=== PATIENT | male | born 1935 | race Two or more races ===

== ENCOUNTER 2022-12-14 13:42 | Inpatient (IN) | payer OTHER ==
[~2022-12-14] VITALS: Ht 165.1 cm; Wt 73.5 kg
[2022-12-14] MEDS ORDERED: ACCU-CHEK COMFORT CURVE STRIP VI ONE (14:15)
[2022-12-14 14:30] VITALS: PULSE 71; RESP 18; O2SAT 99
[2022-12-14 14:41] LABS: Basophils # (auto) 0 10 ^3/uL (0-0.2); Eosinophils # (auto) 0.1 10 ^3/uL (0-0.8); Eosinophils % (auto) 1.6 % (0.0-7.0); Hemoglobin 8.6 g/dL (13.5-17.5); Lymphocytes # (auto) 0.6 10 ^3/uL (0.4-5.4); Lymphocytes % (auto) 16.1 % (10.0-50.0); Mean Corpuscular Hemoglobin 28.6 pg (28.0-32.0); Mean Corpuscular Hgb Conc. 31.9 g/dL (32.0-36.0); Mean Corpuscular Volume 89.7 fL (80.0-100.0); Monocytes # (auto) 0.3 10 ^3/uL (0-1.3); Monocytes % (auto) 7.5 % (0.0-12.0); Neutrophils # (auto) 2.6 10 ^3/uL (1.6-8.6); Neutrophils % (auto) 73.8 % (37.0-80.0); Nucleated Red Blood Cells % 0.1 %; Red Blood Cells 3.01 10^6/uL (4.5-5.90); Red Cell Distribution Width 18.9 % (11.8-14.3); White Blood Cell 3.5 10^3/uL (4.4-10.8)
[2022-12-14 15:04] LABS: Calcium 7.5 mg/dL (8.5-10.1); Potassium 3.7 mmol/L (3.5-5.1)
[2022-12-14 15:10] LABS: Albumin 2.1 g/dL (3.4-5.0); Bilirubin, Total 0.8 mg/dL (0.2-1.0); Total Protein 4.5 g/dL (6.4-8.2)
[2022-12-14 15:27] LABS: Urine Bacteria FEW /hpf (None Seen); Urine Blood Negative /uL (Negative); Urine Clarity Clear (Clear); Urine Color Yellow (Yellow); Urine Hyaline Cast FEW /lpf (0 - 2); Urine Protein, UAD TRACE (Negative); Urine Specific Gravity 1.012 (1.001-1.035); Urine Urobilinogen Normal (Negative); Urine WBC 3 /hpf (0 - 3)
[2022-12-14 15:43] LABS: Erythrocyte Sedimentation Rate 21 mm/hr (0-20)
[2022-12-14] MEDS ORDERED: PIPERACILLIN-TAZOB 3.375GM 100 ML IV ONE (15:45)
[2022-12-14] MEDS ORDERED: SODIUM CHLORIDE 0.9% 1,000 ML IV ONE ×2 (16:00→19:00)
[2022-12-14] MEDS ORDERED: MORPHINE SULFATE INJ 2 MG/ml SYRG IV PRN (16:30)
[2022-12-14] MEDS ORDERED: NITROGLYCERIN 0.4 MG SL TAB SL PRN (16:30)
[2022-12-14] MEDS ORDERED: cefTRIAXone 1GM/50ML D5W 50 ML IV ONE (16:30)
[2022-12-14] MEDS ORDERED: METO25TA5 PO (16:31)
[2022-12-14] MEDS ORDERED: MET25T PO (16:31)
[2022-12-14] MEDS ORDERED: TETR1CAP PO ×2 (16:31→17:18)
[2022-12-14] MEDS ORDERED: PANT40T PO (16:31)
[2022-12-14] MEDS ORDERED: APIX2.5T PO (16:31)
[2022-12-14] MEDS ORDERED: VENL1TAB97 PO (16:31)
[2022-12-14] MEDS ORDERED: MEMA1TAB5 PO (16:31)
[2022-12-14] MEDS ORDERED: GABA-1250 PO (16:31)
[2022-12-14] MEDS ORDERED: TRAZ-227 PO (16:31)
[2022-12-14] MEDS ORDERED: DONE1TAB88 PO (16:31)
[2022-12-14] MEDS ORDERED: FURO40TA4 PO (16:31)
[2022-12-14] MEDS ORDERED: MEGE40TA4 PO (16:31)
[2022-12-14] MEDS ORDERED: CETI-120 PO (16:31)
[2022-12-14] MEDS ORDERED: DOXY-267 PO (16:31)
[2022-12-14] MEDS ORDERED: CIPR500T4 PO (16:31)
[2022-12-14] MEDS ORDERED: CLIN-203 PO (16:31)
[2022-12-14] MEDS ORDERED: MIRT1TAB38 PO (16:32)
[2022-12-14] MEDS ORDERED: DIGO0.12 PO (16:32)
[2022-12-14] MEDS ORDERED: DOXY100C4 PO (16:32)
[2022-12-14] MEDS: HYDROcodone-ACET 5/325MG TAB PO PRN (16:48)
[2022-12-14] MEDS: SODIUM CHLORIDE 0.9% 1,000 ML IV SCH (16:59)
[2022-12-14] MEDS ORDERED: PANT40TA2 PO (17:18)
[2022-12-14] MEDS ORDERED: MET250PM PO (17:18)
[2022-12-14] MEDS ORDERED: [UNRECOGNIZED DRUG - CODE] PO (17:18)
[2022-12-14] MEDS ORDERED: PPN PER PHARMACY 0 ML IV SCH (17:30)
[2022-12-14] MEDS ORDERED: TETRACYCLINE HCL 250 MG PO SCH (18:00)
[2022-12-14] MEDS: BISMUTH SUBSALICYLATE 262 MG CHEW PO SCH ×2 (18:15→22:00)
[2022-12-14] MEDS: metroNIDAZOLE 500 MG TAB PO SCH (18:15)
[2022-12-14] MEDS ORDERED: SODIUM CHLORIDE 0.9% 500 ML IV ONE (19:00)
[2022-12-14] MEDS ORDERED: AMINO ACID INFUSION IN D10W 1,000 ML IV NR (20:00)
[2022-12-14] MEDS ORDERED: DEXTROSE (50%) 50ML SYRG IV SCH (20:00)
[2022-12-14 20:20] VITALS: PULSE 76; RESP 18; O2SAT 95
[2022-12-14] MEDS: ASCORBIC ACID 500 MG TAB PO SCH (21:59)
[2022-12-14] MEDS: MEMANTINE HCL 5 MG TAB PO SCH (22:00)
[2022-12-14] MEDS: DONEPEZIL HYDROCHLORIDE 5 MG TAB PO SCH (22:00)
[2022-12-14] MEDS: GABAPENTIN 300 MG CAP PO SCH (22:00)
[2022-12-14] MEDS: VENLAFAXINE HCL 37.5MG TABLET PO SCH (22:00)
[2022-12-14] MEDS: PANTOPRAZOLE 40 MG TAB PO SCH (22:01)
[2022-12-14] MEDS: APIXABAN 2.5 MG TAB PO SCH (22:01)
[2022-12-14] MEDS: TETRACYCLINE HCL 500 MG PO SCH (22:03)
[2022-12-14] MEDS: MEGESTROL ACETATE 20 MG TAB PO SCH (22:03)
[2022-12-15] MEDS: ACCU-CHEK COMFORT CURVE STRIP VI SCH ×4 (00:29→19:43)
[2022-12-15] MEDS: metroNIDAZOLE 500 MG TAB PO SCH ×5 (00:31→23:41)
[2022-12-15] MEDS: HYDROcodone-ACET 5/325MG TAB PO PRN (00:31)
[2022-12-15] MEDS: InsuLIN REG 1unit/0.01ml Soln (100units/ml) SC SCH ×4 (06:30→18:00)
[2022-12-15] MEDS: BISMUTH SUBSALICYLATE 262 MG CHEW PO SCH ×2 (06:34→13:40)
[2022-12-15] MEDS ORDERED: PANTOPRAZOLE 40 MG TAB PO SCH (07:00)
[2022-12-15 07:08] LABS: Basophils # (auto) 0 10 ^3/uL (0-0.2); Basophils % (auto) 0.4 % (0.0-2.0); Eosinophils # (auto) 0.1 10 ^3/uL (0-0.8); Eosinophils % (auto) 1.3 % (0.0-7.0); Hematocrit 31.2 % (41.0-53.0); Hemoglobin 10.1 g/dL (13.5-17.5); Lymphocytes # (auto) 0.7 10 ^3/uL (0.4-5.4); Lymphocytes % (auto) 15.2 % (10.0-50.0); Mean Corpuscular Hgb Conc. 32.4 g/dL (32.0-36.0); Mean Corpuscular Volume 89.4 fL (80.0-100.0); Monocytes # (auto) 0.3 10 ^3/uL (0-1.3); Monocytes % (auto) 5.8 % (0.0-12.0); Neutrophils # (auto) 3.4 10 ^3/uL (1.6-8.6); Neutrophils % (auto) 77.3 % (37.0-80.0); Nucleated Red Blood Cells % 0.2 %; Red Blood Cells 3.49 10^6/uL (4.5-5.90); Red Cell Distribution Width 19.1 % (11.8-14.3); White Blood Cell 4.3 10^3/uL (4.4-10.8)
[2022-12-15 07:28] LABS: Potassium 3.2 mmol/L (3.5-5.1)
[2022-12-15 07:34] LABS: Albumin 2.4 g/dL (3.4-5.0); BUN/Creatinine Ratio 24.5 (10.0-20.0); Bilirubin, Total 0.8 mg/dL (0.2-1.0); Calcium 7.5 mg/dL (8.5-10.1); Magnesium 1.7 mg/dL (1.6-2.6); Phosphorus 1.4 mg/dL (2.5-4.90); Total Protein 5.7 g/dL (6.4-8.2)
[2022-12-15 07:45] VITALS: PULSE 106; RESP 16; O2SAT 94
[2022-12-15] MEDS: TETRACYCLINE HCL 500 MG PO SCH ×2 (09:14→13:43)
[2022-12-15] MEDS ORDERED: ENOXAPARIN SOD 40 MG/0.4 ML SYRINGE SC SCH (10:00)
[2022-12-15] MEDS ORDERED: FUROSEMIDE 40 MG TAB PO SCH (10:00)
[2022-12-15] MEDS ORDERED: POTASSIUM PHOSPHATE 44 MEQ in D5W 5% 250 ML IV ONE (11:00)
[2022-12-15] MEDS: APIXABAN 2.5 MG TAB PO SCH ×2 (11:17→22:28)
[2022-12-15] MEDS: DIGOXIN 0.125 MG TAB PO SCH (11:17)
[2022-12-15] MEDS: GABAPENTIN 300 MG CAP PO SCH ×2 (11:18→22:28)
[2022-12-15] MEDS: PANTOPRAZOLE 40 MG TAB PO SCH ×2 (11:18→22:28)
[2022-12-15] MEDS: ASCORBIC ACID 500 MG TAB PO SCH ×2 (11:18→22:27)
[2022-12-15] MEDS: MEMANTINE HCL 5 MG TAB PO SCH ×2 (11:19→22:31)
[2022-12-15] MEDS: MULTIPLE VITAMIN TAB PO SCH (11:19)
[2022-12-15] MEDS: ZINC SULFATE 220mg CAP or TAB PO SCH (11:21)
[2022-12-15] MEDS: cefTRIAXone 1GM/50ML D5W 50 ML IV SCH (11:22)
[2022-12-15] MEDS: SODIUM CHLORIDE 0.9% 1,000 ML IV SCH ×2 (11:36→22:37)
[2022-12-15] MEDS: VENLAFAXINE HCL 37.5MG TABLET PO SCH ×2 (11:47→22:27)
[2022-12-15] MEDS: MEGESTROL ACETATE 20 MG TAB PO SCH ×2 (11:47→22:29)
[2022-12-15] MEDS ORDERED: DEXTROSE 10% 250 ML IV ONE (12:12)
[2022-12-15 19:03] VITALS: BP 132/78; PULSE 101; RESP 17; TEMP 98.1; O2SAT 94
[2022-12-15 19:05] VITALS: RESP 17; O2SAT 94
[2022-12-15 20:00] VITALS: PULSE 85; RESP 18; O2SAT 100
[2022-12-15] MEDS ORDERED: POTASSIUM PHOSPHATE IV NR ×9 (20:00)
[2022-12-15] MEDS ORDERED: [UNRECOGNIZED DRUG - OTHER] IV NR ×9 (20:00)
[2022-12-15] MEDS ORDERED: FAT EMULSION IV NR ×9 (20:00)
[2022-12-15] MEDS ORDERED: POTASSIUM ACETATE IV NR ×9 (20:00)
[2022-12-15] MEDS: DONEPEZIL HYDROCHLORIDE 5 MG TAB PO SCH (22:30)
[2022-12-15] MEDS: DAKINS QUARTER STR 0.125% (NaHypochlorite) 473 ML TOPICAL SOL TOP SCH (22:33)
[2022-12-16] VITALS (8 sets, daily range): BP systolic 108–154; BP diastolic 60–82; PULSE 88–119; RESP 16–20; TEMP 97.6–98.5; O2SAT 91–97
[2022-12-16] MEDS: ACCU-CHEK COMFORT CURVE STRIP VI SCH ×4 (00:56→18:08)
[2022-12-16] MEDS: metroNIDAZOLE 500 MG TAB PO SCH ×3 (05:11→18:18)
[2022-12-16] MEDS: HYDROcodone-ACET 5/325MG TAB PO PRN ×2 (05:12→14:53)
[2022-12-16] MEDS: InsuLIN REG 1unit/0.01ml Soln (100units/ml) SC SCH ×4 (05:17→18:00)
[2022-12-16 05:53] LABS: Basophils # (auto) 0 10 ^3/uL (0-0.2); Basophils % (auto) 0.4 % (0.0-2.0); Eosinophils # (auto) 0.1 10 ^3/uL (0-0.8); Eosinophils % (auto) 1.5 % (0.0-7.0); Hematocrit 28.6 % (41.0-53.0); Hemoglobin 9.3 g/dL (13.5-17.5); Lymphocytes # (auto) 0.5 10 ^3/uL (0.4-5.4); Lymphocytes % (auto) 13.8 % (10.0-50.0); Mean Corpuscular Hemoglobin 29.9 pg (28.0-32.0); Mean Corpuscular Hgb Conc. 32.4 g/dL (32.0-36.0); Mean Corpuscular Volume 92.1 fL (80.0-100.0); Monocytes # (auto) 0.3 10 ^3/uL (0-1.3); Monocytes % (auto) 7.3 % (0.0-12.0); Red Blood Cells 3.11 10^6/uL (4.5-5.90); Red Cell Distribution Width 19.4 % (11.8-14.3); White Blood Cell 3.9 10^3/uL (4.4-10.8)
[2022-12-16 06:17] LABS: Potassium 3.8 mmol/L (3.5-5.1)
[2022-12-16 06:29] LABS: BUN/Creatinine Ratio 23.9 (10.0-20.0); Bilirubin, Total 0.6 mg/dL (0.2-1.0); Calcium 7.7 mg/dL (8.5-10.1); Magnesium 2.2 mg/dL (1.6-2.6); Phosphorus 2.7 mg/dL (2.5-4.90)
[2022-12-16] MEDS: APIXABAN 2.5 MG TAB PO SCH ×2 (09:52→21:37)
[2022-12-16] MEDS: VENLAFAXINE HCL 37.5MG TABLET PO SCH ×2 (09:52→21:38)
[2022-12-16] MEDS: ASCORBIC ACID 500 MG TAB PO SCH ×2 (09:52→21:37)
[2022-12-16] MEDS: DIGOXIN 0.125 MG TAB PO SCH (09:52)
[2022-12-16] MEDS: MEMANTINE HCL 5 MG TAB PO SCH ×2 (09:52→21:40)
[2022-12-16] MEDS: MULTIPLE VITAMIN TAB PO SCH (09:52)
[2022-12-16] MEDS: GABAPENTIN 300 MG CAP PO SCH ×2 (09:52→21:41)
[2022-12-16] MEDS: PANTOPRAZOLE 40 MG TAB PO SCH ×2 (09:52→21:39)
[2022-12-16] MEDS: MEGESTROL ACETATE 20 MG TAB PO SCH ×2 (09:53→21:41)
[2022-12-16] MEDS: ZINC SULFATE 220mg CAP or TAB PO SCH (09:53)
[2022-12-16] MEDS: DAKINS QUARTER STR 0.125% (NaHypochlorite) 473 ML TOPICAL SOL TOP SCH ×2 (09:53→22:00)
[2022-12-16] MEDS: cefTRIAXone 1GM/50ML D5W 50 ML IV SCH (09:53)
[2022-12-16] MEDS: TETRACYCLINE HCL 500 MG PO SCH ×2 (19:22→21:45)
[2022-12-16] MEDS: SODIUM CHLORIDE 0.9% 1,000 ML IV SCH (20:00)
[2022-12-16] MEDS: SODIUM ACETATE IV NR ×9 (21:29)
[2022-12-16] MEDS: POTASSIUM ACETATE IV NR ×9 (21:29)
[2022-12-16] MEDS: [UNRECOGNIZED DRUG - OTHER] IV NR ×9 (21:29)
[2022-12-16] MEDS: FAT EMULSION IV NR ×9 (21:29)
[2022-12-16] MEDS: DONEPEZIL HYDROCHLORIDE 5 MG TAB PO SCH (21:38)
[2022-12-16] MEDS: METOPROLOL TARTRATE 25 MG TAB PO SCH (21:44)
[2022-12-16] MEDS ORDERED: METOPROLOL TARTRATE 25 MG TAB PO SCH (22:00)
[2022-12-17] MEDS: metroNIDAZOLE 500 MG TAB PO SCH ×4 (00:43→18:09)
[2022-12-17] MEDS: ACCU-CHEK COMFORT CURVE STRIP VI SCH ×4 (00:46→18:09)
[2022-12-17 05:00] VITALS: BP 108/58; PULSE 70; RESP 15; TEMP 97.6; O2SAT 72
[2022-12-17] MEDS ORDERED: EZ-GAS II GRANULES (RADIOLOGY USE) PO ONE (05:32)
[2022-12-17 05:59] LABS: Potassium 4.2 mmol/L (3.5-5.1)
[2022-12-17] MEDS: InsuLIN REG 1unit/0.01ml Soln (100units/ml) SC SCH ×4 (06:00→17:25)
[2022-12-17 06:05] LABS: Albumin 2.1 g/dL (3.4-5.0); BUN/Creatinine Ratio 28.9 (10.0-20.0); Bilirubin, Total 0.6 mg/dL (0.2-1.0); Magnesium 2.4 mg/dL (1.6-2.6); Phosphorus 1.9 mg/dL (2.5-4.90); Total Protein 5.3 g/dL (6.4-8.2)
[2022-12-17] MEDS: TETRACYCLINE HCL 500 MG PO SCH ×4 (06:05→21:18)
[2022-12-17 08:00] VITALS: PULSE 69
[2022-12-17 09:00] VITALS: BP 162/82; PULSE 94; RESP 20; TEMP 98.6
[2022-12-17] MEDS ORDERED: SODIUM PHOSP 40 MEQ in D5W 5% 250 ML IV ONE (09:45)
[2022-12-17] MEDS: VENLAFAXINE HCL 37.5MG TABLET PO SCH ×2 (10:02→21:17)
[2022-12-17] MEDS: ZINC SULFATE 220mg CAP or TAB PO SCH (10:02)
[2022-12-17] MEDS: MULTIPLE VITAMIN TAB PO SCH (10:02)
[2022-12-17] MEDS: cefTRIAXone 1GM/50ML D5W 50 ML IV SCH (10:02)
[2022-12-17] MEDS: GABAPENTIN 300 MG CAP PO SCH ×2 (10:02→21:16)
[2022-12-17] MEDS: MEMANTINE HCL 5 MG TAB PO SCH ×2 (10:03→21:16)
[2022-12-17] MEDS: PANTOPRAZOLE 40 MG TAB PO SCH ×2 (10:03→21:16)
[2022-12-17] MEDS: APIXABAN 2.5 MG TAB PO SCH ×2 (10:03→21:16)
[2022-12-17] MEDS: ASCORBIC ACID 500 MG TAB PO SCH ×2 (10:03→21:15)
[2022-12-17] MEDS: MEGESTROL ACETATE 20 MG TAB PO SCH ×2 (10:07→21:19)
[2022-12-17] MEDS: DAKINS QUARTER STR 0.125% (NaHypochlorite) 473 ML TOPICAL SOL TOP SCH ×2 (10:07→21:19)
[2022-12-17] MEDS: METOPROLOL TARTRATE 25 MG TAB PO SCH ×2 (10:07→21:17)
[2022-12-17] MEDS ORDERED: GLUCAGON EMERG KIT 1mg/1ml IV ONE (12:45)
[2022-12-17 12:51] VITALS: BP 125/72; PULSE 83; RESP 16; TEMP 98.1
[2022-12-17] MEDS: BISMUTH SUBSALICYLATE 262 MG CHEW PO SCH ×2 (18:10→21:18)
[2022-12-17 19:40] VITALS: PULSE 92; PULSE 94; RESP 18; O2SAT 93
[2022-12-17] MEDS: POTASSIUM ACETATE IV NR ×9 (19:59)
[2022-12-17] MEDS: SODIUM ACETATE IV NR ×9 (19:59)
[2022-12-17] MEDS: [UNRECOGNIZED DRUG - OTHER] IV NR ×9 (19:59)
[2022-12-17] MEDS: FAT EMULSION IV NR ×9 (19:59)
[2022-12-17] MEDS: PPN PER PHARMACY IV NR ×9 (21:00)
[2022-12-17] MEDS: DONEPEZIL HYDROCHLORIDE 5 MG TAB PO SCH (21:16)
[2022-12-17] MEDS: SODIUM CHLORIDE 0.9% 1,000 ML IV SCH (21:18)
[2022-12-17 22:00] VITALS: BP 130/67; PULSE 80; RESP 17; TEMP 98.5; O2SAT 91
[2022-12-18] VITALS (7 sets, daily range): BP systolic 113–147; BP diastolic 60–71; PULSE 65–98; RESP 17–20; TEMP 97.4–98.8; O2SAT 74–100
[2022-12-18] MEDS: metroNIDAZOLE 500 MG TAB PO SCH ×4 (00:40→18:09)
[2022-12-18] MEDS: ACCU-CHEK COMFORT CURVE STRIP VI SCH ×4 (00:40→18:10)
[2022-12-18 05:47] LABS: Albumin 2.2 g/dL (3.4-5.0); Magnesium 2.7 mg/dL (1.6-2.6); Potassium 4.6 mmol/L (3.5-5.1)
[2022-12-18 05:52] LABS: BUN/Creatinine Ratio 37.1 (10.0-20.0); Bilirubin, Total 0.5 mg/dL (0.2-1.0); Phosphorus 2.7 mg/dL (2.5-4.90); Total Protein 5.6 g/dL (6.4-8.2)
[2022-12-18] MEDS: InsuLIN REG 1unit/0.01ml Soln (100units/ml) SC SCH ×4 (06:00→18:00)
[2022-12-18] MEDS: BISMUTH SUBSALICYLATE 262 MG CHEW PO SCH ×4 (06:03→22:18)
[2022-12-18] MEDS: TETRACYCLINE HCL 500 MG PO SCH ×4 (06:04→22:44)
[2022-12-18] MEDS: MEMANTINE HCL 5 MG TAB PO SCH ×2 (09:26→23:17)
[2022-12-18] MEDS: PANTOPRAZOLE 40 MG TAB PO SCH ×2 (09:26→22:17)
[2022-12-18] MEDS: APIXABAN 2.5 MG TAB PO SCH ×2 (09:26→22:17)
[2022-12-18] MEDS: VENLAFAXINE HCL 37.5MG TABLET PO SCH ×2 (09:26→22:16)
[2022-12-18] MEDS: MULTIPLE VITAMIN TAB PO SCH (09:26)
[2022-12-18] MEDS: GABAPENTIN 300 MG CAP PO SCH ×2 (09:26→22:16)
[2022-12-18] MEDS: ZINC SULFATE 220mg CAP or TAB PO SCH (09:26)
[2022-12-18] MEDS: MEGESTROL ACETATE 20 MG TAB PO SCH ×2 (09:27→22:43)
[2022-12-18] MEDS: ASCORBIC ACID 500 MG TAB PO SCH ×2 (09:27→22:16)
[2022-12-18] MEDS: DAKINS QUARTER STR 0.125% (NaHypochlorite) 473 ML TOPICAL SOL TOP SCH ×2 (09:28→22:44)
[2022-12-18] MEDS: METOPROLOL TARTRATE 25 MG TAB PO SCH ×2 (09:28→22:16)
[2022-12-18] MEDS ORDERED: VANCOMYCIN PER PHARMACY 0 MG IV SCH (09:45)
[2022-12-18] MEDS ORDERED: VANCOMYCIN 750mg/250ml 250 ML IV ONE (10:00)
[2022-12-18] MEDS: NYSTATIN (MOUTH-THROAT) 500,000 UNITS/5 ML SUSP MT SCH ×2 (11:34→18:09)
[2022-12-18] MEDS ORDERED: SODIUM PHOSPHATES IV NR ×8 (20:00)
[2022-12-18] MEDS: SODIUM CHLORIDE 0.9% 1,000 ML IV SCH (20:00)
[2022-12-18] MEDS ORDERED: [UNRECOGNIZED DRUG - OTHER] IV NR ×8 (20:00)
[2022-12-18] MEDS ORDERED: POTASSIUM PHOSPHATE IV NR ×8 (20:00)
[2022-12-18] MEDS ORDERED: FAT EMULSION IV NR ×8 (20:00)
[2022-12-18] MEDS: PPN PER PHARMACY IV NR ×9 (20:28)
[2022-12-18] MEDS ORDERED: LORazepam 2MG/ML-1ML VIAL IV PRN (22:00)
[2022-12-18 22:59] LABS: Folate (Folic Acid) 6.67 ng/mL (5.38-24)
[2022-12-18] MEDS: DONEPEZIL HYDROCHLORIDE 5 MG TAB PO SCH (23:17)
[2022-12-19] VITALS (7 sets, daily range): BP systolic 107–150; BP diastolic 42–79; PULSE 61–106; RESP 16–20; TEMP 97.6–98.5; O2SAT 91–100
[2022-12-19] MEDS: InsuLIN REG 1unit/0.01ml Soln (100units/ml) SC SCH ×5 (00:06→23:28)
[2022-12-19] MEDS: ACCU-CHEK COMFORT CURVE STRIP VI SCH ×5 (00:07→23:27)
[2022-12-19] MEDS: metroNIDAZOLE 500 MG TAB PO SCH ×4 (00:07→19:18)
[2022-12-19] MEDS: VANCOMYCIN 750mg/250ml 250 ML IV SCH (05:29)
[2022-12-19] MEDS: BISMUTH SUBSALICYLATE 262 MG CHEW PO SCH ×4 (05:45→23:12)
[2022-12-19] MEDS: NYSTATIN (MOUTH-THROAT) 500,000 UNITS/5 ML SUSP MT SCH ×3 (05:46→19:18)
[2022-12-19] MEDS: TETRACYCLINE HCL 500 MG PO SCH ×4 (05:46→23:12)
[2022-12-19 06:39] LABS: BUN/Creatinine Ratio 43.9 (10.0-20.0); Calcium 7.8 mg/dL (8.5-10.1); Magnesium 2.2 mg/dL (1.6-2.6); Potassium 4.3 mmol/L (3.5-5.1)
[2022-12-19 06:42] LABS: Bilirubin, Total 0.5 mg/dL (0.2-1.0); Phosphorus 2.4 mg/dL (2.5-4.90); Total Protein 5.5 g/dL (6.4-8.2)
[2022-12-19 07:34] LABS: Basophils # (auto) 0 10 ^3/uL (0-0.2); Basophils % (auto) 0.3 % (0.0-2.0); Eosinophils # (auto) 0 10 ^3/uL (0-0.8); Eosinophils % (auto) 1.1 % (0.0-7.0); Hematocrit 32.2 % (41.0-53.0); Hemoglobin 10.2 g/dL (13.5-17.5); Lymphocytes # (auto) 0.6 10 ^3/uL (0.4-5.4); Mean Corpuscular Hemoglobin 29.1 pg (28.0-32.0); Mean Corpuscular Hgb Conc. 31.5 g/dL (32.0-36.0); Mean Corpuscular Volume 92.2 fL (80.0-100.0); Monocytes # (auto) 0.4 10 ^3/uL (0-1.3); Monocytes % (auto) 8.7 % (0.0-12.0); Neutrophils # (auto) 3.2 10 ^3/uL (1.6-8.6); Neutrophils % (auto) 74.9 % (37.0-80.0); Nucleated Red Blood Cells % 0.2 %; Red Blood Cells 3.49 10^6/uL (4.5-5.90); Red Cell Distribution Width 19.9 % (11.8-14.3); White Blood Cell 4.3 10^3/uL (4.4-10.8)
[2022-12-19] MEDS: GABAPENTIN 300 MG CAP PO SCH ×2 (10:19→23:02)
[2022-12-19] MEDS: APIXABAN 2.5 MG TAB PO SCH ×2 (10:20→23:02)
[2022-12-19] MEDS: METOPROLOL TARTRATE 25 MG TAB PO SCH ×2 (10:20→23:16)
[2022-12-19] MEDS: VENLAFAXINE HCL 37.5MG TABLET PO SCH ×2 (10:21→23:14)
[2022-12-19] MEDS: ASCORBIC ACID 500 MG TAB PO SCH ×2 (10:21→23:02)
[2022-12-19] MEDS: MULTIPLE VITAMIN TAB PO SCH (10:21)
[2022-12-19] MEDS: MEMANTINE HCL 5 MG TAB PO SCH ×2 (10:21→22:00)
[2022-12-19] MEDS: ZINC SULFATE 220mg CAP or TAB PO SCH (10:21)
[2022-12-19] MEDS: PANTOPRAZOLE 40 MG TAB PO SCH ×2 (10:21→22:00)
[2022-12-19] MEDS: MEGESTROL ACETATE 20 MG TAB PO SCH ×2 (10:22→23:11)
[2022-12-19] MEDS ORDERED: SODIUM PHOSPHATES 20 MEQ in SODIUM CHL 0.9% 100 ML IV ONE (12:00)
[2022-12-19] MEDS: DAKINS QUARTER STR 0.125% (NaHypochlorite) 473 ML TOPICAL SOL TOP SCH ×2 (15:30→23:24)
[2022-12-19] MEDS ORDERED: PPN PER PHARMACY IV NR ×8 (20:00)
[2022-12-19] MEDS: SODIUM CHLORIDE 0.9% 1,000 ML IV SCH (20:00)
[2022-12-19] MEDS: DONEPEZIL HYDROCHLORIDE 5 MG TAB PO SCH (22:00)
[2022-12-19] MEDS: SUCRALFATE 1 GM/10 ML ORAL SUSP PO SCH (23:13)
[2022-12-20] VITALS (8 sets, daily range): BP systolic 117–154; BP diastolic 62–72; PULSE 85–97; RESP 16–20; TEMP 97.3–98.4; O2SAT 97–100
[2022-12-20] MEDS: metroNIDAZOLE 500 MG TAB PO SCH ×5 (00:12→23:45)
[2022-12-20] MEDS: VANCOMYCIN 750mg/250ml 250 ML IV SCH (00:14)
[2022-12-20] MEDS: HYDROcodone-ACET 5/325MG TAB PO PRN ×2 (04:25→20:32)
[2022-12-20 05:44] LABS: Potassium 4.1 mmol/L (3.5-5.1)
[2022-12-20 05:54] LABS: Albumin 2.2 g/dL (3.4-5.0); BUN/Creatinine Ratio 56.4 (10.0-20.0); Calcium 8.1 mg/dL (8.5-10.1); Magnesium 2.3 mg/dL (1.6-2.6); Phosphorus 3.1 mg/dL (2.5-4.90)
[2022-12-20] MEDS: InsuLIN REG 1unit/0.01ml Soln (100units/ml) SC SCH ×4 (06:00→23:44)
[2022-12-20] MEDS: TETRACYCLINE HCL 500 MG PO SCH ×4 (06:00→21:24)
[2022-12-20] MEDS: BISMUTH SUBSALICYLATE 262 MG CHEW PO SCH ×4 (06:31→21:40)
[2022-12-20] MEDS: SUCRALFATE 1 GM/10 ML ORAL SUSP PO SCH ×4 (06:41→21:26)
[2022-12-20] MEDS: NYSTATIN (MOUTH-THROAT) 500,000 UNITS/5 ML SUSP MT SCH ×5 (06:41→21:26)
[2022-12-20] MEDS: ACCU-CHEK COMFORT CURVE STRIP VI SCH ×4 (06:48→23:43)
[2022-12-20] MEDS: GABAPENTIN 300 MG CAP PO SCH ×2 (09:39→21:39)
[2022-12-20] MEDS: APIXABAN 2.5 MG TAB PO SCH ×2 (09:40→21:39)
[2022-12-20] MEDS: ZINC SULFATE 220mg CAP or TAB PO SCH (09:40)
[2022-12-20] MEDS: PANTOPRAZOLE 40 MG TAB PO SCH ×2 (09:40→21:39)
[2022-12-20] MEDS: VENLAFAXINE HCL 37.5MG TABLET PO SCH ×2 (09:40→21:39)
[2022-12-20] MEDS: ASCORBIC ACID 500 MG TAB PO SCH ×2 (09:40→21:38)
[2022-12-20] MEDS: MULTIPLE VITAMIN TAB PO SCH (09:40)
[2022-12-20] MEDS: METOPROLOL TARTRATE 25 MG TAB PO SCH ×2 (09:41→21:39)
[2022-12-20] MEDS: MEGESTROL ACETATE 20 MG TAB PO SCH ×2 (09:41→21:40)
[2022-12-20] MEDS: MEMANTINE HCL 5 MG TAB PO SCH ×2 (10:00→21:25)
[2022-12-20] MEDS: ACYCLOVIR 400 MG TAB PO SCH ×2 (15:00→21:48)
[2022-12-20] MEDS: DAKINS QUARTER STR 0.125% (NaHypochlorite) 473 ML TOPICAL SOL TOP SCH ×2 (15:03→21:49)
[2022-12-20] MEDS: ACETAMINOPHEN 325 MG TAB PO PRN (18:52)
[2022-12-20] MEDS: SODIUM CHLORIDE 0.9% 1,000 ML IV SCH (20:33)
[2022-12-20] MEDS: DONEPEZIL HYDROCHLORIDE 5 MG TAB PO SCH (21:25)
[2022-12-20] MEDS: MUPIROCIN 2% OINT 15gm or 22gm TOP SCH (21:26)
[2022-12-21] VITALS (7 sets, daily range): BP systolic 107–137; BP diastolic 55–71; PULSE 66–109; RESP 17–22; TEMP 97.4–98.6; O2SAT 96–98
[2022-12-21] MEDS: NYSTATIN (MOUTH-THROAT) 500,000 UNITS/5 ML SUSP MT SCH ×4 (05:42→22:04)
[2022-12-21] MEDS: TETRACYCLINE HCL 500 MG PO SCH ×4 (05:43→22:00)
[2022-12-21] MEDS: metroNIDAZOLE 500 MG TAB PO SCH ×4 (05:45→23:27)
[2022-12-21] MEDS: BISMUTH SUBSALICYLATE 262 MG CHEW PO SCH ×4 (05:45→22:04)
[2022-12-21] MEDS: ACYCLOVIR 400 MG TAB PO SCH ×3 (05:45→22:05)
[2022-12-21] MEDS: InsuLIN REG 1unit/0.01ml Soln (100units/ml) SC SCH ×4 (05:46→23:28)
[2022-12-21] MEDS: ACCU-CHEK COMFORT CURVE STRIP VI SCH ×4 (05:46→23:28)
[2022-12-21] MEDS: SUCRALFATE 1 GM/10 ML ORAL SUSP PO SCH ×4 (06:20→22:04)
[2022-12-21] MEDS: PANTOPRAZOLE 40 MG TAB PO SCH ×2 (09:36→22:05)
[2022-12-21] MEDS: METOPROLOL TARTRATE 25 MG TAB PO SCH ×2 (09:37→22:06)
[2022-12-21] MEDS: MULTIPLE VITAMIN TAB PO SCH (09:37)
[2022-12-21] MEDS: ZINC SULFATE 220mg CAP or TAB PO SCH (09:37)
[2022-12-21] MEDS: VENLAFAXINE HCL 37.5MG TABLET PO SCH ×2 (09:37→22:10)
[2022-12-21] MEDS: GABAPENTIN 300 MG CAP PO SCH ×2 (09:37→22:05)
[2022-12-21] MEDS: APIXABAN 2.5 MG TAB PO SCH ×2 (09:37→22:05)
[2022-12-21] MEDS: ASCORBIC ACID 500 MG TAB PO SCH ×2 (09:37→22:05)
[2022-12-21] MEDS: MEMANTINE HCL 5 MG TAB PO SCH ×2 (09:37→22:00)
[2022-12-21] MEDS: MEGESTROL ACETATE 20 MG TAB PO SCH ×2 (09:41→22:06)
[2022-12-21] MEDS: MUPIROCIN 2% OINT 15gm or 22gm TOP SCH ×2 (09:41→22:03)
[2022-12-21] MEDS: DAKINS QUARTER STR 0.125% (NaHypochlorite) 473 ML TOPICAL SOL TOP SCH ×2 (09:41→22:03)
[2022-12-21] MEDS: VANCOMYCIN 750mg/250ml 250 ML IV SCH (11:44)
[2022-12-21] MEDS: SODIUM CHLORIDE 0.9% 1,000 ML IV SCH (20:00)
[2022-12-21] MEDS: DONEPEZIL HYDROCHLORIDE 5 MG TAB PO SCH (22:00)
[2022-12-22] VITALS (9 sets, daily range): BP systolic 111–149; BP diastolic 63–101; PULSE 86–118; RESP 16–22; TEMP 97.8–98.8; O2SAT 96–100
[2022-12-22] MEDS: HYDROcodone-ACET 5/325MG TAB PO PRN (05:23)
[2022-12-22] MEDS: NYSTATIN (MOUTH-THROAT) 500,000 UNITS/5 ML SUSP MT SCH ×4 (05:24→23:17)
[2022-12-22] MEDS: metroNIDAZOLE 500 MG TAB PO SCH ×4 (05:24→23:19)
[2022-12-22] MEDS: ACYCLOVIR 400 MG TAB PO SCH ×3 (05:24→23:19)
[2022-12-22] MEDS: TETRACYCLINE HCL 500 MG PO SCH ×4 (05:24→23:17)
[2022-12-22] MEDS: VANCOMYCIN 750mg/250ml 250 ML IV SCH ×2 (05:24→23:49)
[2022-12-22] MEDS: ACCU-CHEK COMFORT CURVE STRIP VI SCH ×4 (05:25→23:49)
[2022-12-22] MEDS: BISMUTH SUBSALICYLATE 262 MG CHEW PO SCH ×4 (05:25→23:18)
[2022-12-22] MEDS: InsuLIN REG 1unit/0.01ml Soln (100units/ml) SC SCH ×3 (05:31→17:42)
[2022-12-22] MEDS: SUCRALFATE 1 GM/10 ML ORAL SUSP PO SCH ×4 (05:50→23:18)
[2022-12-22] MEDS: METOPROLOL TARTRATE 25 MG TAB PO SCH ×2 (10:00→23:18)
[2022-12-22] MEDS: MEMANTINE HCL 5 MG TAB PO SCH (10:00)
[2022-12-22] MEDS: GABAPENTIN 300 MG CAP PO SCH ×2 (10:00→23:18)
[2022-12-22] MEDS: PANTOPRAZOLE 40 MG TAB PO SCH ×2 (10:50→23:19)
[2022-12-22] MEDS: ASCORBIC ACID 500 MG TAB PO SCH ×2 (10:51→23:19)
[2022-12-22] MEDS: ZINC SULFATE 220mg CAP or TAB PO SCH (10:51)
[2022-12-22] MEDS: MULTIPLE VITAMIN TAB PO SCH (10:51)
[2022-12-22] MEDS: APIXABAN 2.5 MG TAB PO SCH (10:51)
[2022-12-22] MEDS: VENLAFAXINE HCL 37.5MG TABLET PO SCH ×2 (10:51→23:18)
[2022-12-22] MEDS: DAKINS QUARTER STR 0.125% (NaHypochlorite) 473 ML TOPICAL SOL TOP SCH ×2 (10:52→23:15)
[2022-12-22] MEDS: MUPIROCIN 2% OINT 15gm or 22gm TOP SCH ×2 (10:52→23:15)
[2022-12-22] MEDS: MEGESTROL ACETATE 20 MG TAB PO SCH ×2 (10:52→23:18)
[2022-12-22 11:25] LABS: Basophils # (auto) 0 10 ^3/uL (0-0.2); Basophils % (auto) 0.9 % (0.0-2.0); Eosinophils # (auto) 0 10 ^3/uL (0-0.8); Eosinophils % (auto) 1.1 % (0.0-7.0); Hemoglobin 9.5 g/dL (13.5-17.5); Lymphocytes # (auto) 0.5 10 ^3/uL (0.4-5.4); Lymphocytes % (auto) 14.3 % (10.0-50.0); Mean Corpuscular Hgb Conc. 32.6 g/dL (32.0-36.0); Mean Corpuscular Volume 89.2 fL (80.0-100.0); Monocytes # (auto) 0.3 10 ^3/uL (0-1.3); Monocytes % (auto) 7.2 % (0.0-12.0); Neutrophils # (auto) 2.8 10 ^3/uL (1.6-8.6); Neutrophils % (auto) 76.5 % (37.0-80.0); Nucleated Red Blood Cells % 0.1 %; Red Blood Cells 3.26 10^6/uL (4.5-5.90); White Blood Cell 3.7 10^3/uL (4.4-10.8)
[2022-12-22 11:44] LABS: BUN/Creatinine Ratio 27.3 (10.0-20.0); Calcium 8.2 mg/dL (8.5-10.1)
[2022-12-22 11:46] LABS: Red Cell Distribution Width 20.7 % (11.8-14.3)
[2022-12-22] MEDS ORDERED: AMIODARONE HCL 150 MG in D5W 5% 100 ML IV ONE (13:15)
[2022-12-22] MEDS ORDERED: AMIODARONE 450mg/250ml AE 250 ML IV SCH (13:30)
[2022-12-22] MEDS: AMIODARONE 450mg/250ml AE 250 ML IV SCH (19:57)
[2022-12-22] MEDS: SODIUM CHLORIDE 0.9% 1,000 ML IV SCH (20:58)
[2022-12-22] MEDS: ENOXAPARIN SOD 60 MG/0.6 ML SYRINGE SC SCH (23:14)
[2022-12-23] VITALS (20 sets, daily range): BP systolic 109–139; BP diastolic 57–90; PULSE 98–128; RESP 13–30; TEMP 97.8–98.4; O2SAT 94–100
[2022-12-23 04:59] LABS: Basophils # (auto) 0 10 ^3/uL (0-0.2); Basophils % (auto) 0.7 % (0.0-2.0); Eosinophils # (auto) 0 10 ^3/uL (0-0.8); Eosinophils % (auto) 0.6 % (0.0-7.0); Hematocrit 29.3 % (41.0-53.0); Hemoglobin 9.6 g/dL (13.5-17.5); Lymphocytes # (auto) 0.6 10 ^3/uL (0.4-5.4); Mean Corpuscular Hemoglobin 29.3 pg (28.0-32.0); Mean Corpuscular Hgb Conc. 32.8 g/dL (32.0-36.0); Mean Corpuscular Volume 89.1 fL (80.0-100.0); Monocytes # (auto) 0.4 10 ^3/uL (0-1.3); Monocytes % (auto) 7.2 % (0.0-12.0); Neutrophils # (auto) 4.3 10 ^3/uL (1.6-8.6); Neutrophils % (auto) 79.5 % (37.0-80.0); Nucleated Red Blood Cells % 0.2 %; Red Blood Cells 3.29 10^6/uL (4.5-5.90); White Blood Cell 5.4 10^3/uL (4.4-10.8)
[2022-12-23 05:10] LABS: Calcium 7.9 mg/dL (8.5-10.1); Potassium 3.7 mmol/L (3.5-5.1)
[2022-12-23] MEDS: NYSTATIN (MOUTH-THROAT) 500,000 UNITS/5 ML SUSP MT SCH ×4 (05:20→21:16)
[2022-12-23] MEDS: TETRACYCLINE HCL 500 MG PO SCH ×2 (05:20→12:00)
[2022-12-23] MEDS: ACYCLOVIR 400 MG TAB PO SCH ×3 (05:21→21:17)
[2022-12-23] MEDS: metroNIDAZOLE 500 MG TAB PO SCH ×4 (05:21→22:57)
[2022-12-23] MEDS: BISMUTH SUBSALICYLATE 262 MG CHEW PO SCH ×4 (05:21→21:49)
[2022-12-23] MEDS: InsuLIN REG 1unit/0.01ml Soln (100units/ml) SC SCH ×5 (05:31→23:04)
[2022-12-23] MEDS: ACCU-CHEK COMFORT CURVE STRIP VI SCH ×4 (05:31→22:57)
[2022-12-23] MEDS: SUCRALFATE 1 GM/10 ML ORAL SUSP PO SCH ×4 (06:11→21:16)
[2022-12-23] MEDS ORDERED: MAGNESIUM SULFATE 1GM/100ML 100 ML IV ONE (09:00)
[2022-12-23] MEDS ORDERED: SODIUM CHLORIDE 0.9% 1,000 ML IV SCH (09:00)
[2022-12-23] MEDS ORDERED: POTASSIUM CHL 20MEQ/100ML 100 ML IV ONE (09:00)
[2022-12-23] MEDS: PANTOPRAZOLE 40 MG/10 ML VIAL INJ IV SCH ×2 (11:01→21:16)
[2022-12-23] MEDS: METOPROLOL TARTRATE 25 MG TAB PO SCH ×2 (11:02→21:18)
[2022-12-23] MEDS: HYDROcodone-ACET 5/325MG TAB PO PRN (11:06)
[2022-12-23] MEDS: GABAPENTIN 300 MG CAP PO SCH ×2 (11:07→21:17)
[2022-12-23] MEDS: MEGESTROL ACETATE 20 MG TAB PO SCH ×2 (11:13→21:18)
[2022-12-23] MEDS: VENLAFAXINE HCL 37.5MG TABLET PO SCH ×2 (11:13→21:17)
[2022-12-23] MEDS: ZINC SULFATE 220mg CAP or TAB PO SCH (11:14)
[2022-12-23] MEDS: ASCORBIC ACID 500 MG TAB PO SCH ×2 (11:15→21:17)
[2022-12-23] MEDS: ENOXAPARIN SOD 60 MG/0.6 ML SYRINGE SC SCH ×2 (11:16→21:17)
[2022-12-23] MEDS: MUPIROCIN 2% OINT 15gm or 22gm TOP SCH ×2 (11:17→21:19)
[2022-12-23] MEDS: DAKINS QUARTER STR 0.125% (NaHypochlorite) 473 ML TOPICAL SOL TOP SCH ×2 (11:17→21:19)
[2022-12-23] MEDS: MULTIPLE VITAMIN TAB PO SCH (11:19)
[2022-12-23] MEDS: AMIODARONE 450mg/250ml AE 250 ML IV SCH (11:20)
[2022-12-23] MEDS: VANCOMYCIN 750mg/250ml 250 ML IV SCH (17:36)
[2022-12-23] MEDS: SODIUM CHLORIDE 0.9% 1,000 ML IV SCH (20:00)
[2022-12-24] VITALS (35 sets, daily range): BP systolic 103–125; BP diastolic 63–78; PULSE 74–118; RESP 13–27; TEMP 98–99.1; O2SAT 91–100
[2022-12-24] MEDS: SODIUM CHLORIDE 0.9% 1,000 ML IV SCH (02:35)
[2022-12-24 05:00] LABS: Basophils # (auto) 0 10 ^3/uL (0-0.2); Basophils % (auto) 0.6 % (0.0-2.0); Eosinophils # (auto) 0.1 10 ^3/uL (0-0.8); Eosinophils % (auto) 1.2 % (0.0-7.0); Hematocrit 29.1 % (41.0-53.0); Hemoglobin 9.6 g/dL (13.5-17.5); Lymphocytes # (auto) 0.4 10 ^3/uL (0.4-5.4); Lymphocytes % (auto) 6.7 % (10.0-50.0); Mean Corpuscular Hemoglobin 29.8 pg (28.0-32.0); Mean Corpuscular Volume 90.4 fL (80.0-100.0); Monocytes # (auto) 0.3 10 ^3/uL (0-1.3); Monocytes % (auto) 5.5 % (0.0-12.0); Neutrophils # (auto) 4.7 10 ^3/uL (1.6-8.6); Nucleated Red Blood Cells % 0.1 %; Red Blood Cells 3.22 10^6/uL (4.5-5.90); White Blood Cell 5.4 10^3/uL (4.4-10.8)
[2022-12-24 05:02] LABS: Red Cell Distribution Width 21.3 % (11.8-14.3)
[2022-12-24 05:38] LABS: Albumin 2.2 g/dL (3.4-5.0); BUN/Creatinine Ratio 20.7 (10.0-20.0); Calcium 7.8 mg/dL (8.5-10.1); Magnesium 1.6 mg/dL (1.6-2.6); Potassium 3.6 mmol/L (3.5-5.1)
[2022-12-24 05:40] LABS: Bilirubin, Total 0.6 mg/dL (0.2-1.0); Total Protein 5.5 g/dL (6.4-8.2)
[2022-12-24] MEDS: metroNIDAZOLE 500 MG TAB PO SCH ×3 (05:59→18:58)
[2022-12-24] MEDS: ACCU-CHEK COMFORT CURVE STRIP VI SCH ×3 (05:59→18:13)
[2022-12-24] MEDS: ACYCLOVIR 400 MG TAB PO SCH ×3 (05:59→21:54)
[2022-12-24] MEDS: SUCRALFATE 1 GM/10 ML ORAL SUSP PO SCH ×4 (05:59→21:53)
[2022-12-24] MEDS: BISMUTH SUBSALICYLATE 262 MG CHEW PO SCH ×4 (05:59→22:00)
[2022-12-24] MEDS: NYSTATIN (MOUTH-THROAT) 500,000 UNITS/5 ML SUSP MT SCH ×4 (05:59→21:53)
[2022-12-24] MEDS: InsuLIN REG 1unit/0.01ml Soln (100units/ml) SC SCH ×3 (05:59→18:00)
[2022-12-24] MEDS: AMIODARONE 450mg/250ml AE 250 ML IV SCH ×2 (06:00→16:30)
[2022-12-24] MEDS: ENOXAPARIN SOD 60 MG/0.6 ML SYRINGE SC SCH ×2 (08:34→21:54)
[2022-12-24] MEDS: GABAPENTIN 300 MG CAP PO SCH ×2 (08:34→21:52)
[2022-12-24] MEDS: MULTIPLE VITAMIN TAB PO SCH (08:34)
[2022-12-24] MEDS: ASCORBIC ACID 500 MG TAB PO SCH ×2 (08:34→21:52)
[2022-12-24] MEDS: PANTOPRAZOLE 40 MG/10 ML VIAL INJ IV SCH ×2 (08:34→21:55)
[2022-12-24] MEDS: METOPROLOL TARTRATE 25 MG TAB PO SCH (08:35)
[2022-12-24] MEDS: ZINC SULFATE 220mg CAP or TAB PO SCH (08:35)
[2022-12-24] MEDS: VENLAFAXINE HCL 37.5MG TABLET PO SCH ×2 (08:35→21:52)
[2022-12-24] MEDS: DAKINS QUARTER STR 0.125% (NaHypochlorite) 473 ML TOPICAL SOL TOP SCH ×2 (08:36→21:57)
[2022-12-24] MEDS: MUPIROCIN 2% OINT 15gm or 22gm TOP SCH ×2 (08:36→22:09)
[2022-12-24] MEDS: MEGESTROL ACET 400MG/10ML ORAL SUSP PO SCH ×2 (08:44→21:53)
[2022-12-24] MEDS: VANCOMYCIN 750mg/250ml 250 ML IV SCH (11:35)
[2022-12-24] MEDS: AMIODARONE HCL 200 MG TAB PO SCH (18:58)
[2022-12-24] MEDS: MAGNESIUM SULFATE 1GM/100ML 100 ML IV SCH ×3 (19:00→22:49)
[2022-12-24] MEDS: POTASSIUM CHL 20MEQ/100ML 100 ML IV SCH ×2 (19:15→20:24)
[2022-12-24] MEDS: METOPROLOL TARTRATE 50 MG TAB PO SCH (21:56)
[2022-12-25] VITALS (8 sets, daily range): BP systolic 113–127; BP diastolic 66–76; PULSE 59–104; RESP 15–18; TEMP 97.7–98.3; O2SAT 92–99
[2022-12-25] MEDS ORDERED: POTASSIUM CHL 20MEQ/100ML 100 ML IV SCH (01:00)
[2022-12-25] MEDS: metroNIDAZOLE 500 MG TAB PO SCH ×2 (01:07→06:00)
[2022-12-25] MEDS: MAGNESIUM SULFATE 1GM/100ML 100 ML IV SCH (01:08)
[2022-12-25] MEDS: NYSTATIN (MOUTH-THROAT) 500,000 UNITS/5 ML SUSP MT SCH (06:00)
[2022-12-25] MEDS: ACYCLOVIR 400 MG TAB PO SCH (06:00)
[2022-12-25] MEDS: SUCRALFATE 1 GM/10 ML ORAL SUSP PO SCH ×4 (06:00→22:11)
[2022-12-25] MEDS: BISMUTH SUBSALICYLATE 262 MG CHEW PO SCH ×4 (06:53→22:13)
[2022-12-25] MEDS: VANCOMYCIN 750mg/250ml 250 ML IV SCH (06:54)
[2022-12-25 07:14] LABS: Basophils # (auto) 0 10 ^3/uL (0-0.2); Basophils % (auto) 0.4 % (0.0-2.0); Eosinophils # (auto) 0.1 10 ^3/uL (0-0.8); Eosinophils % (auto) 1.8 % (0.0-7.0); Hemoglobin 10.1 g/dL (13.5-17.5); Lymphocytes # (auto) 0.8 10 ^3/uL (0.4-5.4); Lymphocytes % (auto) 13.8 % (10.0-50.0); Mean Corpuscular Hemoglobin 29.7 pg (28.0-32.0); Mean Corpuscular Hgb Conc. 32.7 g/dL (32.0-36.0); Mean Corpuscular Volume 90.9 fL (80.0-100.0); Monocytes # (auto) 0.3 10 ^3/uL (0-1.3); Neutrophils # (auto) 4.4 10 ^3/uL (1.6-8.6); Red Blood Cells 3.41 10^6/uL (4.5-5.90); Red Cell Distribution Width 21.8 % (11.8-14.3); White Blood Cell 5.7 10^3/uL (4.4-10.8)
[2022-12-25 07:34] LABS: Albumin 2.5 g/dL (3.4-5.0); Magnesium 2.7 mg/dL (1.6-2.6); Potassium 4.3 mmol/L (3.5-5.1)
[2022-12-25 07:39] LABS: BUN/Creatinine Ratio 14.1 (10.0-20.0); Bilirubin, Total 0.5 mg/dL (0.2-1.0); Total Protein 6.1 g/dL (6.4-8.2)
[2022-12-25] MEDS: MEGESTROL ACET 400MG/10ML ORAL SUSP PO SCH ×2 (08:45→22:13)
[2022-12-25] MEDS: ENOXAPARIN SOD 60 MG/0.6 ML SYRINGE SC SCH (08:45)
[2022-12-25] MEDS: PANTOPRAZOLE 40 MG/10 ML VIAL INJ IV SCH ×2 (08:46→22:11)
[2022-12-25] MEDS: ASCORBIC ACID 500 MG TAB PO SCH (08:46)
[2022-12-25] MEDS: VENLAFAXINE HCL 37.5MG TABLET PO SCH ×2 (08:46→22:12)
[2022-12-25] MEDS: GABAPENTIN 300 MG CAP PO SCH ×2 (08:46→22:13)
[2022-12-25] MEDS: ZINC SULFATE 220mg CAP or TAB PO SCH (08:46)
[2022-12-25] MEDS: AMIODARONE HCL 200 MG TAB PO SCH ×2 (08:47→22:12)
[2022-12-25] MEDS: METOPROLOL TARTRATE 50 MG TAB PO SCH ×2 (08:47→22:24)
[2022-12-25] MEDS: MULTIPLE VITAMIN TAB PO SCH (08:47)
[2022-12-25] MEDS: MUPIROCIN 2% OINT 15gm or 22gm TOP SCH ×2 (08:48→22:14)
[2022-12-25] MEDS: DAKINS QUARTER STR 0.125% (NaHypochlorite) 473 ML TOPICAL SOL TOP SCH ×2 (08:48→22:14)
[2022-12-25 15:38] LABS: INR 1.19 (0.9-1.15); Partial Thromboplastin Time 29.6 SEC (24.5-34.5); Prothrombin Time 12.4 sec (9.3-11.8)
[2022-12-25] MEDS ORDERED: ARTIFICIAL TEARS 15ml EACHEYE PRN (17:15)
[2022-12-25] MEDS: SODIUM CHLORIDE 0.9% 1,000 ML IV SCH (21:07)
[2022-12-25] MEDS: APIXABAN 2.5 MG TAB PO SCH (22:12)
[2022-12-26] VITALS (9 sets, daily range): BP systolic 98–122; BP diastolic 39–65; PULSE 75–103; RESP 17–19; TEMP 97.4–97.9; O2SAT 95–100
[2022-12-26] MEDS: VANCOMYCIN 750mg/250ml 250 ML IV SCH
[2022-12-26] MEDS: BISMUTH SUBSALICYLATE 262 MG CHEW PO SCH ×4 (06:21→22:15)
[2022-12-26] MEDS: SUCRALFATE 1 GM/10 ML ORAL SUSP PO SCH ×4 (06:21→22:13)
[2022-12-26] MEDS: cefTRIAXone 1GM/50ML D5W 50 ML IV SCH (10:13)
[2022-12-26] MEDS: PANTOPRAZOLE 40 MG/10 ML VIAL INJ IV SCH ×2 (10:27→22:13)
[2022-12-26] MEDS: APIXABAN 2.5 MG TAB PO SCH ×2 (10:29→22:14)
[2022-12-26] MEDS: GABAPENTIN 300 MG CAP PO SCH ×2 (10:29→22:14)
[2022-12-26] MEDS: METOPROLOL TARTRATE 50 MG TAB PO SCH ×2 (10:29→22:00)
[2022-12-26] MEDS: AMIODARONE HCL 200 MG TAB PO SCH ×2 (10:30→22:14)
[2022-12-26] MEDS: MEGESTROL ACET 400MG/10ML ORAL SUSP PO SCH ×2 (10:31→22:31)
[2022-12-26] MEDS: MULTIPLE VITAMIN TAB PO SCH (10:31)
[2022-12-26] MEDS: VENLAFAXINE HCL 37.5MG TABLET PO SCH ×2 (10:31→22:13)
[2022-12-26] MEDS: MUPIROCIN 2% OINT 15gm or 22gm TOP SCH ×2 (10:33→22:16)
[2022-12-26] MEDS: DAKINS QUARTER STR 0.125% (NaHypochlorite) 473 ML TOPICAL SOL TOP SCH ×2 (10:33→22:16)
[2022-12-26] MEDS: FLORASTOR (S. BOULARDII) 250 MG CAP PO SCH (11:26)
[2022-12-26] MEDS ORDERED: LIDOCAINE 1% (LOCAL ANESTH.) PF 5ml SDV ID ONE (18:15)
[2022-12-26] MEDS: SODIUM CHLORIDE 0.9% 1,000 ML IV SCH (20:00)
[2022-12-26] MEDS: SODIUM CHLOR 0.9% PF (SALINE LOCK) 10ML VIAL/SYR IV SCH (22:13)
[2022-12-27] VITALS (8 sets, daily range): BP systolic 107–126; BP diastolic 39–72; PULSE 64–111; RESP 15–21; TEMP 97.4–98.2; O2SAT 96–100
[2022-12-27] MEDS: ACETAMINOPHEN 325 MG TAB PO PRN (04:30)
[2022-12-27] MEDS: BISMUTH SUBSALICYLATE 262 MG CHEW PO SCH ×4 (06:33→23:01)
[2022-12-27] MEDS: SUCRALFATE 1 GM/10 ML ORAL SUSP PO SCH ×4 (06:33→23:00)
[2022-12-27] MEDS: cefTRIAXone 1GM/50ML D5W 50 ML IV SCH (08:27)
[2022-12-27] MEDS: PANTOPRAZOLE 40 MG/10 ML VIAL INJ IV SCH ×2 (10:49→23:00)
[2022-12-27] MEDS: SODIUM CHLOR 0.9% PF (SALINE LOCK) 10ML VIAL/SYR IV SCH ×2 (10:49→23:02)
[2022-12-27] MEDS: MEGESTROL ACET 400MG/10ML ORAL SUSP PO SCH ×2 (10:51→23:00)
[2022-12-27] MEDS: AMIODARONE HCL 200 MG TAB PO SCH ×2 (10:52→23:00)
[2022-12-27] MEDS: VENLAFAXINE HCL 37.5MG TABLET PO SCH ×2 (10:53→23:00)
[2022-12-27] MEDS: MULTIPLE VITAMIN TAB PO SCH (10:53)
[2022-12-27] MEDS: METOPROLOL TARTRATE 50 MG TAB PO SCH ×2 (10:53→22:00)
[2022-12-27] MEDS: APIXABAN 2.5 MG TAB PO SCH ×2 (10:54→23:00)
[2022-12-27] MEDS: DAKINS QUARTER STR 0.125% (NaHypochlorite) 473 ML TOPICAL SOL TOP SCH ×2 (10:54→23:01)
[2022-12-27] MEDS: GABAPENTIN 300 MG CAP PO SCH ×2 (10:54→23:00)
[2022-12-27] MEDS: MUPIROCIN 2% OINT 15gm or 22gm TOP SCH ×2 (10:55→23:01)
[2022-12-27] MEDS: FLORASTOR (S. BOULARDII) 250 MG CAP PO SCH (11:03)
[2022-12-27] MEDS: SODIUM CHLORIDE 0.9% 1,000 ML IV SCH (21:47)
[2022-12-27] MEDS ORDERED: DEXTROSE 10% 1,000 ML IV ONE (22:32)
[2022-12-27] MEDS: VANCOMYCIN 500 MG in D5W 5% 100 ML IV SCH (23:03)
[2022-12-28] VITALS (8 sets, daily range): BP systolic 120–137; BP diastolic 32–74; PULSE 77–113; RESP 16–18; TEMP 97.5–98.1; O2SAT 93–100
[2022-12-28] MEDS: SUCRALFATE 1 GM/10 ML ORAL SUSP PO SCH ×4 (06:29→22:29)
[2022-12-28] MEDS: BISMUTH SUBSALICYLATE 262 MG CHEW PO SCH ×4 (06:29→22:08)
[2022-12-28 07:26] LABS: Potassium 4.2 mmol/L (3.5-5.1)
[2022-12-28 07:33] LABS: BUN/Creatinine Ratio 17.3 (10.0-20.0); Magnesium 1.9 mg/dL (1.6-2.6)
[2022-12-28 07:45] LABS: Albumin 2.2 g/dL (3.4-5.0); Bilirubin, Total 0.4 mg/dL (0.2-1.0); Total Protein 6.2 g/dL (6.4-8.2)
[2022-12-28 07:53] LABS: Basophils # (auto) 0 10 ^3/uL (0-0.2); Basophils % (auto) 0.5 % (0.0-2.0); Eosinophils # (auto) 0.1 10 ^3/uL (0-0.8); Eosinophils % (auto) 1.8 % (0.0-7.0); Hemoglobin 10.3 g/dL (13.5-17.5); Lymphocytes # (auto) 0.5 10 ^3/uL (0.4-5.4); Lymphocytes % (auto) 9.4 % (10.0-50.0); Mean Corpuscular Hemoglobin 30.3 pg (28.0-32.0); Mean Corpuscular Hgb Conc. 32.1 g/dL (32.0-36.0); Mean Corpuscular Volume 94.4 fL (80.0-100.0); Monocytes # (auto) 0.3 10 ^3/uL (0-1.3); Neutrophils # (auto) 4.6 10 ^3/uL (1.6-8.6); Neutrophils % (auto) 82.3 % (37.0-80.0); Nucleated Red Blood Cells % 0.2 %; Red Blood Cells 3.39 10^6/uL (4.5-5.90); Red Cell Distribution Width 23.2 % (11.8-14.3); White Blood Cell 5.5 10^3/uL (4.4-10.8)
[2022-12-28] MEDS: cefTRIAXone 1GM/50ML D5W 50 ML IV SCH (08:52)
[2022-12-28] MEDS: PANTOPRAZOLE 40 MG/10 ML VIAL INJ IV SCH ×2 (09:34→22:08)
[2022-12-28] MEDS: MULTIPLE VITAMIN TAB PO SCH (09:35)
[2022-12-28] MEDS: VENLAFAXINE HCL 37.5MG TABLET PO SCH ×2 (09:35→22:26)
[2022-12-28] MEDS: APIXABAN 2.5 MG TAB PO SCH ×2 (09:35→22:11)
[2022-12-28] MEDS: MEGESTROL ACET 400MG/10ML ORAL SUSP PO SCH ×2 (09:35→22:09)
[2022-12-28] MEDS: GABAPENTIN 300 MG CAP PO SCH ×2 (09:35→22:09)
[2022-12-28] MEDS: FLORASTOR (S. BOULARDII) 250 MG CAP PO SCH (09:35)
[2022-12-28] MEDS: AMIODARONE HCL 200 MG TAB PO SCH ×2 (09:38→22:11)
[2022-12-28] MEDS: METOPROLOL TARTRATE 50 MG TAB PO SCH ×2 (09:38→22:10)
[2022-12-28] MEDS: SODIUM CHLOR 0.9% PF (SALINE LOCK) 10ML VIAL/SYR IV SCH ×2 (09:38→22:11)
[2022-12-28] MEDS: DAKINS QUARTER STR 0.125% (NaHypochlorite) 473 ML TOPICAL SOL TOP SCH ×2 (09:46→22:00)
[2022-12-28] MEDS: MUPIROCIN 2% OINT 15gm or 22gm TOP SCH (09:47)
[2022-12-28] MEDS ORDERED: MAGNESIUM SULFATE 1GM/100ML 100 ML IV ONE (10:15)
[2022-12-28] MEDS: SODIUM CHLORIDE 0.9% 1,000 ML IV SCH (20:00)
[2022-12-28] MEDS: VANCOMYCIN 500 MG in D5W 5% 100 ML IV SCH (22:25)
[2022-12-29] VITALS (8 sets, daily range): BP systolic 104–132; BP diastolic 48–72; PULSE 68–109; RESP 14–20; TEMP 97.7–98.8; O2SAT 99–100
[2022-12-29] MEDS: BISMUTH SUBSALICYLATE 262 MG CHEW PO SCH ×4 (05:54→22:20)
[2022-12-29] MEDS: ACETAMINOPHEN 325 MG TAB PO PRN (05:54)
[2022-12-29] MEDS: SUCRALFATE 1 GM/10 ML ORAL SUSP PO SCH ×4 (06:46→22:20)
[2022-12-29 07:06] LABS: Basophils # (auto) 0 10 ^3/uL (0-0.2); Basophils % (auto) 0.7 % (0.0-2.0); Eosinophils # (auto) 0.1 10 ^3/uL (0-0.8); Eosinophils % (auto) 1.4 % (0.0-7.0); Hematocrit 29.6 % (41.0-53.0); Hemoglobin 9.6 g/dL (13.5-17.5); Lymphocytes # (auto) 0.4 10 ^3/uL (0.4-5.4); Lymphocytes % (auto) 7.9 % (10.0-50.0); Mean Corpuscular Hemoglobin 30.4 pg (28.0-32.0); Mean Corpuscular Hgb Conc. 32.6 g/dL (32.0-36.0); Mean Corpuscular Volume 93.2 fL (80.0-100.0); Monocytes # (auto) 0.4 10 ^3/uL (0-1.3); Monocytes % (auto) 6.8 % (0.0-12.0); Neutrophils # (auto) 4.6 10 ^3/uL (1.6-8.6); Neutrophils % (auto) 83.2 % (37.0-80.0); Nucleated Red Blood Cells % 0.1 %; Red Blood Cells 3.17 10^6/uL (4.5-5.90); White Blood Cell 5.6 10^3/uL (4.4-10.8)
[2022-12-29 07:07] LABS: Red Cell Distribution Width 22.5 % (11.8-14.3)
[2022-12-29 07:34] LABS: Potassium 4.4 mmol/L (3.5-5.1)
[2022-12-29 07:40] LABS: BUN/Creatinine Ratio 16.3 (10.0-20.0); Bilirubin, Total 0.4 mg/dL (0.2-1.0); Calcium 7.9 mg/dL (8.5-10.1); Magnesium 2.2 mg/dL (1.6-2.6); Total Protein 5.7 g/dL (6.4-8.2)
[2022-12-29] MEDS: cefTRIAXone 1GM/50ML D5W 50 ML IV SCH (09:42)
[2022-12-29] MEDS: PANTOPRAZOLE 40 MG/10 ML VIAL INJ IV SCH ×2 (09:45→22:20)
[2022-12-29] MEDS: METOPROLOL TARTRATE 50 MG TAB PO SCH ×2 (09:45→22:22)
[2022-12-29] MEDS: FLORASTOR (S. BOULARDII) 250 MG CAP PO SCH (09:45)
[2022-12-29] MEDS: APIXABAN 2.5 MG TAB PO SCH ×2 (09:45→22:21)
[2022-12-29] MEDS: GABAPENTIN 300 MG CAP PO SCH ×2 (09:45→22:22)
[2022-12-29] MEDS: MULTIPLE VITAMIN TAB PO SCH (09:46)
[2022-12-29] MEDS: VENLAFAXINE HCL 37.5MG TABLET PO SCH ×2 (09:46→22:21)
[2022-12-29] MEDS: AMIODARONE HCL 200 MG TAB PO SCH ×2 (09:46→22:21)
[2022-12-29] MEDS: SODIUM CHLOR 0.9% PF (SALINE LOCK) 10ML VIAL/SYR IV SCH ×2 (09:46→22:22)
[2022-12-29] MEDS: DAKINS QUARTER STR 0.125% (NaHypochlorite) 473 ML TOPICAL SOL TOP SCH ×2 (09:46→22:00)
[2022-12-29] MEDS: MEGESTROL ACET 400MG/10ML ORAL SUSP PO SCH ×2 (10:00→22:20)
[2022-12-29] MEDS: VANCOMYCIN 500 MG in D5W 5% 100 ML IV SCH (22:21)
[2022-12-29] MEDS: SODIUM CHLORIDE 0.9% 1,000 ML IV SCH (22:23)
[2022-12-30] VITALS (7 sets, daily range): BP systolic 102–141; BP diastolic 53–97; PULSE 99–117; RESP 16–22; TEMP 97.6–99; O2SAT 89–99
[2022-12-30] MEDS: SUCRALFATE 1 GM/10 ML ORAL SUSP PO SCH ×4 (06:22→22:38)
[2022-12-30] MEDS: BISMUTH SUBSALICYLATE 262 MG CHEW PO SCH ×4 (06:22→22:41)
[2022-12-30] MEDS: cefTRIAXone 1GM/50ML D5W 50 ML IV SCH (08:50)
[2022-12-30] MEDS: SODIUM CHLOR 0.9% PF (SALINE LOCK) 10ML VIAL/SYR IV SCH ×2 (10:52→22:00)
[2022-12-30] MEDS: VENLAFAXINE HCL 37.5MG TABLET PO SCH ×2 (10:52→22:38)
[2022-12-30] MEDS: PANTOPRAZOLE 40 MG/10 ML VIAL INJ IV SCH ×2 (10:52→22:38)
[2022-12-30] MEDS: GABAPENTIN 300 MG CAP PO SCH ×2 (10:53→22:39)
[2022-12-30] MEDS: METOPROLOL TARTRATE 50 MG TAB PO SCH ×2 (10:53→22:40)
[2022-12-30] MEDS: MULTIPLE VITAMIN TAB PO SCH (10:53)
[2022-12-30] MEDS: AMIODARONE HCL 200 MG TAB PO SCH ×2 (10:53→22:41)
[2022-12-30] MEDS: APIXABAN 2.5 MG TAB PO SCH ×2 (10:53→22:40)
[2022-12-30] MEDS: FLORASTOR (S. BOULARDII) 250 MG CAP PO SCH (10:54)
[2022-12-30] MEDS: MEGESTROL ACET 400MG/10ML ORAL SUSP PO SCH ×2 (10:54→23:35)
[2022-12-30] MEDS: DAKINS QUARTER STR 0.125% (NaHypochlorite) 473 ML TOPICAL SOL TOP SCH ×2 (10:54→22:00)
[2022-12-30] MEDS: SODIUM CHLORIDE 0.9% 1,000 ML IV SCH (20:00)
[2022-12-30] MEDS: VANCOMYCIN 500 MG in D5W 5% 100 ML IV SCH (22:38)
[2022-12-30] MEDS ORDERED: MELATONIN 5 MG TAB PO ONE (23:15)
[2022-12-31] VITALS (60 sets, daily range): BP systolic 53–150; BP diastolic 21–127; PULSE 59–128; RESP 13–40; TEMP 97.5–99.2; O2SAT 55–100
[2022-12-31] MEDS: dilTIAZem 25 MG/5 ML VIAL IV PRN (01:58)
[2022-12-31] MEDS: SUCRALFATE 1 GM/10 ML ORAL SUSP PO SCH ×4 (06:33→22:00)
[2022-12-31] MEDS: BISMUTH SUBSALICYLATE 262 MG CHEW PO SCH ×4 (06:34→22:00)
[2022-12-31] MEDS ORDERED: ALBUMIN 25% 50 ML IV ONE ×2 (08:43→09:00)
[2022-12-31] MEDS ORDERED: NOREPINEPHRINE 8 MG/250ML KIT 250 ML IV ONE ×2 (08:50→10:00)
[2022-12-31] MEDS ORDERED: SODIUM BICARBONATE 8.4 % INJ 50ML VIAL IV ONE ×2 (09:00)
[2022-12-31] MEDS ORDERED: FUROSEMIDE 20 MG/2 ML VIAL IV ONE ×2 (09:00→09:15)
[2022-12-31] MEDS: cefTRIAXone 1GM/50ML D5W 50 ML IV SCH (09:00)
[2022-12-31] MEDS ORDERED: FUROSEMIDE 20 MG/2 ML VIAL ONE (09:00)
[2022-12-31 09:15] LABS: Basophils # (auto) 0.1 10 ^3/uL (0-0.2); Eosinophils # (auto) 0 10 ^3/uL (0-0.8); Monocytes % (auto) 5.3 % (0.0-12.0)
[2022-12-31 09:17] LABS: Basophils % (auto) 0.3 % (0.0-2.0); Hematocrit 35.4 % (41.0-53.0); Hemoglobin 10.3 g/dL (13.5-17.5); Lymphocytes # (auto) 0.4 10 ^3/uL (0.4-5.4); Lymphocytes % (auto) 2.4 % (10.0-50.0); Mean Corpuscular Hemoglobin 30.4 pg (28.0-32.0); Mean Corpuscular Hgb Conc. 29.2 g/dL (32.0-36.0); Monocytes # (auto) 0.9 10 ^3/uL (0-1.3); Neutrophils # (auto) 16.4 10 ^3/uL (1.6-8.6); Nucleated Red Blood Cells % 0.1 %; White Blood Cell 17.8 10^3/uL (4.4-10.8)
[2022-12-31 09:24] LABS: Red Cell Distribution Width 23.5 % (11.8-14.3)
[2022-12-31] MEDS: APIXABAN 2.5 MG TAB PO SCH ×2 (10:00→22:00)
[2022-12-31] MEDS: GABAPENTIN 300 MG CAP PO SCH ×2 (10:00→22:00)
[2022-12-31] MEDS: METOPROLOL TARTRATE 50 MG TAB PO SCH ×2 (10:00→22:00)
[2022-12-31] MEDS: MEGESTROL ACET 400MG/10ML ORAL SUSP PO SCH ×2 (10:00→22:00)
[2022-12-31] MEDS: MULTIPLE VITAMIN TAB PO SCH (10:00)
[2022-12-31] MEDS: PANTOPRAZOLE 40 MG/10 ML VIAL INJ IV SCH ×2 (10:00→23:26)
[2022-12-31] MEDS: VENLAFAXINE HCL 37.5MG TABLET PO SCH ×2 (10:00→22:00)
[2022-12-31] MEDS: FLORASTOR (S. BOULARDII) 250 MG CAP PO SCH (10:00)
[2022-12-31] MEDS: DAKINS QUARTER STR 0.125% (NaHypochlorite) 473 ML TOPICAL SOL TOP SCH (10:00)
[2022-12-31] MEDS: SODIUM CHLOR 0.9% PF (SALINE LOCK) 10ML VIAL/SYR IV SCH ×2 (10:00→23:25)
[2022-12-31] MEDS: AMIODARONE HCL 200 MG TAB PO SCH ×2 (10:00→22:00)
[2022-12-31 10:52] LABS: Lactic Acid w/Reflex 6.9 mmol/L (0.4-2.0)
[2022-12-31 11:39] LABS: Albumin 2.1 g/dL (3.4-5.0); BUN/Creatinine Ratio 13.4 (10.0-20.0)
[2022-12-31 11:42] LABS: Bilirubin, Total 0.8 mg/dL (0.2-1.0); Total Protein 6.2 g/dL (6.4-8.2)
[2022-12-31 12:00] LABS: Base Excess -6.1 mmol/L (-2.0-2.0)
[2022-12-31] MEDS: IPRATROPIUM BROM 0.5 MG/2.5ML INH SOL NEB SCH ×3 (14:31→22:02)
[2022-12-31] MEDS: ALBUTEROL SULF 2.5 MG/0.5ML(0.5%) NEB SOLN NEB SCH ×3 (14:31→22:02)
[2022-12-31] MEDS ORDERED: DEXTROSE (50%) 50ML SYRG IV PRN (16:30)
[2022-12-31] MEDS ORDERED: CLINIMIX PER PHARMACY 0 ML IV SCH (17:15)
[2022-12-31] MEDS: ACCU-CHEK COMFORT CURVE STRIP VI SCH (18:00)
[2022-12-31] MEDS: InsuLIN REG 1unit/0.01ml Soln (100units/ml) SC SCH (18:00)
[2022-12-31] MEDS ORDERED: SODIUM BICARBONATE 8.4% INJ 50ML SYRINGE IV ONE (18:11)
[2022-12-31] MEDS: AMINO ACID INFUSION IN D10W 1,000 ML IV NR (20:59)
[2022-12-31] MEDS: VANCOMYCIN 500 MG in D5W 5% 100 ML IV SCH (22:00)
[2022-12-31 22:08] LABS: Body Fluid White Blood Cells 425 CUMM (0-200)
[2022-12-31 22:09] LABS: Body Fluid Polymorphonuclear 32 % (0-25); Body Fluid Red Blood Cells 708 CUMM (0-2000)
[2022-12-31] MEDS: MORPHINE SULFATE INJ 2 MG/ml SYRG IV PRN (23:02)
[2022-12-31] MEDS: SODIUM CHLORIDE 0.9% 1,000 ML IV SCH (23:26)
[2023-01-01] VITALS (106 sets, daily range): BP systolic 60–163; BP diastolic 22–81; PULSE 58–131; RESP 16–46; TEMP 97.5–100; O2SAT 85–100
[2023-01-01] MEDS: CEFEPIME 2GM/50ML NS 50 ML IV SCH ×3 (00:54→21:54)
[2023-01-01] MEDS: ACCU-CHEK COMFORT CURVE STRIP VI SCH ×5 (00:55→23:25)
[2023-01-01] MEDS: DAKINS QUARTER STR 0.125% (NaHypochlorite) 473 ML TOPICAL SOL TOP SCH ×3 (00:57→22:09)
[2023-01-01] MEDS: ALBUTEROL SULF 2.5 MG/0.5ML(0.5%) NEB SOLN NEB SCH ×6 (01:51→22:49)
[2023-01-01] MEDS: IPRATROPIUM BROM 0.5 MG/2.5ML INH SOL NEB SCH ×6 (01:51→22:49)
[2023-01-01] MEDS ORDERED: PROPOFOL 100 ML IV SCH (02:00)
[2023-01-01] MEDS ORDERED: ACETAMINOPHEN 325 MG TAB PO PRN (02:00)
[2023-01-01] MEDS: dilTIAZem 25 MG/5 ML VIAL IV PRN ×5 (02:32→22:29)
[2023-01-01 05:04] LABS: Potassium 3.8 mmol/L (3.5-5.1)
[2023-01-01 05:08] LABS: Albumin 1.9 g/dL (3.4-5.0); BUN/Creatinine Ratio 20.1 (10.0-20.0); Calcium 7.7 mg/dL (8.5-10.1); Magnesium 1.6 mg/dL (1.6-2.6)
[2023-01-01 05:17] LABS: Bilirubin, Total 0.5 mg/dL (0.2-1.0); Phosphorus 2.8 mg/dL (2.5-4.90); Total Protein 5.3 g/dL (6.4-8.2)
[2023-01-01] MEDS: SUCRALFATE 1 GM/10 ML ORAL SUSP PO SCH ×4 (06:00→22:07)
[2023-01-01] MEDS: BISMUTH SUBSALICYLATE 262 MG CHEW PO SCH ×5 (06:00→22:08)
[2023-01-01] MEDS: InsuLIN REG 1unit/0.01ml Soln (100units/ml) SC SCH ×5 (06:00→23:25)
[2023-01-01] MEDS: POTASSIUM CHL 20MEQ/100ML 100 ML IV SCH ×2 (07:30→09:30)
[2023-01-01 08:56] LABS: Base Excess -0.9 mmol/L (-2.0-2.0)
[2023-01-01] MEDS: MAGNESIUM SULFATE 1GM/100ML 100 ML IV SCH ×2 (09:39→11:45)
[2023-01-01] MEDS: PANTOPRAZOLE 40 MG/10 ML VIAL INJ IV SCH ×2 (09:47→22:07)
[2023-01-01] MEDS: MEGESTROL ACET 400MG/10ML ORAL SUSP PO SCH ×2 (10:00→22:00)
[2023-01-01] MEDS: VENLAFAXINE HCL 37.5MG TABLET PO SCH ×2 (10:00→22:07)
[2023-01-01] MEDS: METOPROLOL TARTRATE 50 MG TAB PO SCH ×2 (10:00→22:00)
[2023-01-01] MEDS: FLORASTOR (S. BOULARDII) 250 MG CAP PO SCH (10:00)
[2023-01-01] MEDS: AMIODARONE HCL 200 MG TAB PO SCH ×2 (10:00→22:07)
[2023-01-01] MEDS: GABAPENTIN 300 MG CAP PO SCH ×2 (10:00→22:07)
[2023-01-01] MEDS: MULTIPLE VITAMIN TAB PO SCH (10:00)
[2023-01-01] MEDS: APIXABAN 2.5 MG TAB PO SCH ×2 (10:00→22:07)
[2023-01-01] MEDS: SODIUM CHLOR 0.9% PF (SALINE LOCK) 10ML VIAL/SYR IV SCH ×2 (11:45→22:07)
[2023-01-01] MEDS: SODIUM CHLORIDE 0.9% 1,000 ML IV SCH (20:00)
[2023-01-01] MEDS: AMINO ACID INFUSION IN D10W 1,000 ML IV NR (20:36)
[2023-01-01] MEDS: VANCOMYCIN 500 MG in D5W 5% 100 ML IV SCH (21:54)
[2023-01-02] VITALS (110 sets, daily range): BP systolic 79–261; BP diastolic 27–216; PULSE 94–138; RESP 17–47; TEMP 97.5–97.8; O2SAT 87–100
[2023-01-02] MEDS: NOREPINEPHRINE 8 MG/250ML KIT 250 ML IV SCH (00:43)
[2023-01-02] MEDS: MORPHINE SULFATE INJ 2 MG/ml SYRG IV PRN ×2 (02:15→22:04)
[2023-01-02] MEDS: IPRATROPIUM BROM 0.5 MG/2.5ML INH SOL NEB SCH ×6 (02:45→22:57)
[2023-01-02] MEDS: ALBUTEROL SULF 2.5 MG/0.5ML(0.5%) NEB SOLN NEB SCH ×6 (02:46→22:57)
[2023-01-02] MEDS: dilTIAZem 25 MG/5 ML VIAL IV PRN ×2 (03:32→06:26)
[2023-01-02 04:06] LABS: Potassium 3.2 mmol/L (3.5-5.1)
[2023-01-02 04:16] LABS: Albumin 1.8 g/dL (3.4-5.0); BUN/Creatinine Ratio 22.6 (10.0-20.0); Bilirubin, Total 0.8 mg/dL (0.2-1.0); Calcium 8.1 mg/dL (8.5-10.1); Magnesium 2.2 mg/dL (1.6-2.6); Phosphorus 1.4 mg/dL (2.5-4.90); Total Protein 5.7 g/dL (6.4-8.2)
[2023-01-02] MEDS: InsuLIN REG 1unit/0.01ml Soln (100units/ml) SC SCH ×3 (05:11→17:52)
[2023-01-02] MEDS: ACCU-CHEK COMFORT CURVE STRIP VI SCH ×3 (05:12→17:52)
[2023-01-02] MEDS: BISMUTH SUBSALICYLATE 262 MG CHEW PO SCH ×4 (05:12→21:53)
[2023-01-02] MEDS: SUCRALFATE 1 GM/10 ML ORAL SUSP PO SCH ×4 (06:25→21:52)
[2023-01-02 06:30] LABS: Base Excess -1.8 mmol/L (-2.0-2.0)
[2023-01-02] MEDS ORDERED: SODIUM CHLORIDE 0.9% 1,000 ML IV SCH (08:00)
[2023-01-02] MEDS: MAGNESIUM SULFATE 1GM/100ML 100 ML IV SCH ×4 (08:00→10:13)
[2023-01-02] MEDS ORDERED: ALBUMIN 25% 100 ML IV ONE (08:00)
[2023-01-02] MEDS: POTASSIUM CHL 20MEQ/100ML 100 ML IV SCH ×3 (08:31→13:28)
[2023-01-02] MEDS: MULTIPLE VITAMIN TAB PO SCH (10:00)
[2023-01-02] MEDS: VENLAFAXINE HCL 37.5MG TABLET PO SCH ×2 (10:00→21:53)
[2023-01-02] MEDS: GABAPENTIN 300 MG CAP PO SCH ×2 (10:00→21:53)
[2023-01-02] MEDS: MEGESTROL ACET 400MG/10ML ORAL SUSP PO SCH ×2 (10:00→21:53)
[2023-01-02] MEDS: AMIODARONE HCL 200 MG TAB PO SCH (10:00)
[2023-01-02] MEDS: METOPROLOL TARTRATE 50 MG TAB PO SCH (10:00)
[2023-01-02] MEDS: FLORASTOR (S. BOULARDII) 250 MG CAP PO SCH (10:00)
[2023-01-02] MEDS: DAKINS QUARTER STR 0.125% (NaHypochlorite) 473 ML TOPICAL SOL TOP SCH ×2 (10:00→21:53)
[2023-01-02] MEDS: PANTOPRAZOLE 40 MG/10 ML VIAL INJ IV SCH ×2 (10:12→21:43)
[2023-01-02] MEDS: SODIUM CHLOR 0.9% PF (SALINE LOCK) 10ML VIAL/SYR IV SCH ×2 (10:26→21:43)
[2023-01-02] MEDS ORDERED: SODIUM PHOSPHATES 40 MEQ in D5W 5% 250 ML IV ONE (12:00)
[2023-01-02] MEDS ORDERED: dilTIAZem 125mg/125ml BAG KIT 125 ML IV SCH (13:15)
[2023-01-02] MEDS: APIXABAN 2.5 MG TAB PO SCH (13:28)
[2023-01-02 15:06] LABS: Protein, Body Fluid 1.8 g/dL (.)
[2023-01-02] MEDS: CEFEPIME 2GM/50ML NS 50 ML IV SCH ×2 (16:33→21:43)
[2023-01-02] MEDS: ENOXAPARIN SOD 60 MG/0.6 ML SYRINGE SC SCH ×2 (17:34→21:43)
[2023-01-02] MEDS: METOPROLOL TARTRATE 1MG/1ML-5ML VIAL IV PRN (18:29)
[2023-01-02] MEDS: AMINO ACID INFUSION IN D10W 1,000 ML IV NR (21:06)
[2023-01-02] MEDS: VANCOMYCIN 500 MG in D5W 5% 100 ML IV SCH (21:49)
[2023-01-03] VITALS (89 sets, daily range): BP systolic 58–160; BP diastolic 17–112; PULSE 100–154; RESP 21–52; TEMP 97.7–98.6; O2SAT 3–100
[2023-01-03] MEDS: ACCU-CHEK COMFORT CURVE STRIP VI SCH ×4 (00:27→17:52)
[2023-01-03] MEDS ORDERED: DEXTROSE 50% SYRINGE 0 ML IV ONE (00:29)
[2023-01-03] MEDS: METOPROLOL TARTRATE 1MG/1ML-5ML VIAL IV PRN ×3 (00:30→19:37)
[2023-01-03] MEDS: NOREPINEPHRINE 8 MG/250ML KIT 250 ML IV SCH (00:45)
[2023-01-03] MEDS: IPRATROPIUM BROM 0.5 MG/2.5ML INH SOL NEB SCH ×5 (02:50→21:49)
[2023-01-03] MEDS: ALBUTEROL SULF 2.5 MG/0.5ML(0.5%) NEB SOLN NEB SCH ×5 (02:50→21:49)
[2023-01-03 04:10] LABS: Basophils # (auto) 0 10 ^3/uL (0-0.2); Basophils % (auto) 0.1 % (0.0-2.0); Eosinophils # (auto) 0 10 ^3/uL (0-0.8); Eosinophils % (auto) 0.2 % (0.0-7.0); Hematocrit 26.1 % (41.0-53.0); Hemoglobin 8.6 g/dL (13.5-17.5); Lymphocytes # (auto) 0.3 10 ^3/uL (0.4-5.4); Lymphocytes % (auto) 3.2 % (10.0-50.0); Mean Corpuscular Hemoglobin 29.9 pg (28.0-32.0); Mean Corpuscular Hgb Conc. 32.9 g/dL (32.0-36.0); Monocytes # (auto) 0.2 10 ^3/uL (0-1.3); Monocytes % (auto) 2.9 % (0.0-12.0); Neutrophils # (auto) 7.4 10 ^3/uL (1.6-8.6); Neutrophils % (auto) 93.6 % (37.0-80.0); Nucleated Red Blood Cells % 0.1 %; Red Blood Cells 2.87 10^6/uL (4.5-5.90); White Blood Cell 7.9 10^3/uL (4.4-10.8)
[2023-01-03 04:31] LABS: Albumin 1.6 g/dL (3.4-5.0); BUN/Creatinine Ratio 33.8 (10.0-20.0); Calcium 7.6 mg/dL (8.5-10.1); Magnesium 1.8 mg/dL (1.6-2.6); Potassium 3.5 mmol/L (3.5-5.1)
[2023-01-03 04:34] LABS: Bilirubin, Total 0.9 mg/dL (0.2-1.0); Phosphorus 2.4 mg/dL (2.5-4.90); Total Protein 5.2 g/dL (6.4-8.2)
[2023-01-03 04:52] LABS: Red Cell Distribution Width 21.8 % (11.8-14.3)
[2023-01-03] MEDS: BISMUTH SUBSALICYLATE 262 MG CHEW PO SCH ×4 (06:00→21:18)
[2023-01-03] MEDS: InsuLIN REG 1unit/0.01ml Soln (100units/ml) SC SCH ×4 (06:00→17:52)
[2023-01-03] MEDS: SUCRALFATE 1 GM/10 ML ORAL SUSP PO SCH ×4 (06:24→21:18)
[2023-01-03] MEDS ORDERED: MAGNESIUM SULFATE 1GM/100ML 100 ML IV ONE (07:45)
[2023-01-03 08:56] LABS: Base Excess -3.6 mmol/L (-2.0-2.0)
[2023-01-03] MEDS: VENLAFAXINE HCL 37.5MG TABLET PO SCH ×2 (09:59→21:18)
[2023-01-03] MEDS: GABAPENTIN 300 MG CAP PO SCH ×2 (09:59→21:18)
[2023-01-03] MEDS: MEGESTROL ACET 400MG/10ML ORAL SUSP PO SCH ×2 (09:59→21:18)
[2023-01-03] MEDS: MULTIPLE VITAMIN TAB PO SCH (09:59)
[2023-01-03] MEDS: FLORASTOR (S. BOULARDII) 250 MG CAP PO SCH (09:59)
[2023-01-03] MEDS: CEFEPIME 2GM/50ML NS 50 ML IV SCH ×2 (10:00→21:17)
[2023-01-03] MEDS: DAKINS QUARTER STR 0.125% (NaHypochlorite) 473 ML TOPICAL SOL TOP SCH ×2 (10:00→21:20)
[2023-01-03] MEDS: PANTOPRAZOLE 40 MG/10 ML VIAL INJ IV SCH ×2 (10:18→21:17)
[2023-01-03] MEDS: ENOXAPARIN SOD 60 MG/0.6 ML SYRINGE SC SCH ×2 (10:18→21:17)
[2023-01-03] MEDS: SODIUM CHLOR 0.9% PF (SALINE LOCK) 10ML VIAL/SYR IV SCH ×3 (10:19→21:19)
[2023-01-03] MEDS: LORazepam 2MG/ML-1ML VIAL IV PRN ×2 (10:19→16:49)
[2023-01-03] MEDS: POTASSIUM CHL 20MEQ/100ML 100 ML IV SCH ×3 (10:21→12:11)
[2023-01-03] MEDS ORDERED: AMIODARONE HCL 150 MG in D5W 5% 100 ML IV ONE (11:45)
[2023-01-03] MEDS ORDERED: AMIODARONE 450mg/250ml AE 250 ML IV SCH (12:00)
[2023-01-03 14:26] LABS: INR 1.33 (0.9-1.15); Partial Thromboplastin Time 50.6 SEC (24.5-34.5); Prothrombin Time 13.7 sec (9.3-11.8)
[2023-01-03] MEDS ORDERED: LIDOCAINE 1% (LOCAL ANESTH.) PF 5ml SDV ID ONE (16:00)
[2023-01-03] MEDS ORDERED: POTASSIUM PHOSPHATE 22 MEQ in SODIUM CHL 0.9% 100 ML IV ONE (16:15)
[2023-01-03] MEDS ORDERED: SODIUM PHOSP 20MEQ(15MMOL) IN NS 100 ML IV ONE (17:00)
[2023-01-03] MEDS: FUROSEMIDE 40 MG/4 ML VIAL IV SCH (17:43)
[2023-01-03] MEDS: AMIODARONE 450mg/250ml AE 250 ML IV SCH ×2 (17:56→21:20)
[2023-01-03] MEDS: AMINO ACID INFUSION IN D10W 1,000 ML IV NR (21:16)
[2023-01-03] MEDS: VANCOMYCIN 500 MG in D5W 5% 100 ML IV SCH (21:19)
[2023-01-03] MEDS: MORPHINE SULFATE INJ 2 MG/ml SYRG IV PRN (23:06)
[2023-01-03] MEDS ORDERED: ACYCLOVIR 5MG/KG Q8HR PER RX 0 ML IV SCH (23:15)
[2023-01-04] VITALS (108 sets, daily range): BP systolic 80–163; BP diastolic 28–98; PULSE 93–139; RESP 22–38; TEMP 97.7–99.5; O2SAT 95–100
[2023-01-04] MEDS: ACCU-CHEK COMFORT CURVE STRIP VI SCH ×5 (00:05→23:32)
[2023-01-04] MEDS ORDERED: ACYCLOVIR SODIUM (50 MG/ ML) 10 ML VIAL IV ONE (00:42)
[2023-01-04] MEDS: NOREPINEPHRINE 8 MG/250ML KIT 250 ML IV SCH ×2 (00:45→11:30)
[2023-01-04] MEDS: D5W 5% IV SCH ×4 (01:06→23:36)
[2023-01-04] MEDS: ACYCLOVIR SOD IV SCH ×4 (01:06→23:36)
[2023-01-04] MEDS: IPRATROPIUM BROM 0.5 MG/2.5ML INH SOL NEB SCH ×6 (02:18→22:44)
[2023-01-04] MEDS: ALBUTEROL SULF 2.5 MG/0.5ML(0.5%) NEB SOLN NEB SCH ×6 (02:18→22:44)
[2023-01-04 04:16] LABS: Basophils # (auto) 0 10 ^3/uL (0-0.2); Basophils % (auto) 0.4 % (0.0-2.0); Eosinophils # (auto) 0 10 ^3/uL (0-0.8); Eosinophils % (auto) 0.3 % (0.0-7.0); Hematocrit 28.4 % (41.0-53.0); Hemoglobin 9.2 g/dL (13.5-17.5); Lymphocytes # (auto) 0.2 10 ^3/uL (0.4-5.4); Lymphocytes % (auto) 2.1 % (10.0-50.0); Mean Corpuscular Hemoglobin 29.9 pg (28.0-32.0); Mean Corpuscular Hgb Conc. 32.3 g/dL (32.0-36.0); Mean Corpuscular Volume 92.7 fL (80.0-100.0); Monocytes # (auto) 0.3 10 ^3/uL (0-1.3); Monocytes % (auto) 3.1 % (0.0-12.0); Neutrophils # (auto) 9.8 10 ^3/uL (1.6-8.6); Neutrophils % (auto) 94.1 % (37.0-80.0); Nucleated Red Blood Cells % 0.2 %; Red Blood Cells 3.06 10^6/uL (4.5-5.90); White Blood Cell 10.5 10^3/uL (4.4-10.8)
[2023-01-04 04:24] LABS: Albumin 1.8 g/dL (3.4-5.0); Magnesium 2.2 mg/dL (1.6-2.6); Potassium 4.2 mmol/L (3.5-5.1)
[2023-01-04 04:28] LABS: BUN/Creatinine Ratio 29.8 (10.0-20.0); Bilirubin, Total 1.2 mg/dL (0.2-1.0); Total Protein 5.5 g/dL (6.4-8.2)
[2023-01-04 05:11] LABS: Red Cell Distribution Width 22.3 % (11.8-14.3)
[2023-01-04] MEDS: FUROSEMIDE 40 MG/4 ML VIAL IV SCH ×2 (05:50→17:16)
[2023-01-04] MEDS: BISMUTH SUBSALICYLATE 262 MG CHEW PO SCH ×4 (05:50→22:00)
[2023-01-04] MEDS: InsuLIN REG 1unit/0.01ml Soln (100units/ml) SC SCH ×5 (05:53→23:35)
[2023-01-04] MEDS: SUCRALFATE 1 GM/10 ML ORAL SUSP PO SCH ×4 (05:53→22:01)
[2023-01-04 07:48] LABS: Anisocytosis Moderate; Platelet Estimate Adequate
[2023-01-04] MEDS: MEGESTROL ACET 400MG/10ML ORAL SUSP PO SCH ×2 (10:00→22:10)
[2023-01-04] MEDS: GABAPENTIN 300 MG CAP PO SCH ×2 (10:00→22:02)
[2023-01-04] MEDS: ENOXAPARIN SOD 60 MG/0.6 ML SYRINGE SC SCH ×2 (10:00→22:01)
[2023-01-04] MEDS: DAKINS QUARTER STR 0.125% (NaHypochlorite) 473 ML TOPICAL SOL TOP SCH ×2 (10:00→22:10)
[2023-01-04] MEDS: FLORASTOR (S. BOULARDII) 250 MG CAP PO SCH (10:00)
[2023-01-04] MEDS: VENLAFAXINE HCL 37.5MG TABLET PO SCH ×2 (10:00→22:09)
[2023-01-04] MEDS: MULTIPLE VITAMIN TAB PO SCH (10:00)
[2023-01-04] MEDS: PANTOPRAZOLE 40 MG/10 ML VIAL INJ IV SCH ×2 (10:24→22:01)
[2023-01-04] MEDS: CEFEPIME 2GM/50ML NS 50 ML IV SCH ×2 (10:26→22:01)
[2023-01-04] MEDS: AMIODARONE 450mg/250ml AE 250 ML IV SCH (10:26)
[2023-01-04] MEDS: MICAFUNGIN SODIUM 100 MG in SODIUM CHL 0.9% 100 ML IV SCH (10:27)
[2023-01-04] MEDS: SODIUM CHLOR 0.9% PF (SALINE LOCK) 10ML VIAL/SYR IV SCH ×4 (10:33→22:02)
[2023-01-04] MEDS ORDERED: MIDAZOLAM DRIP 50 mg/50mL 50 ML IV ONE (10:53)
[2023-01-04] MEDS ORDERED: SUCCINYLCHOLINE CHLORIDE 20 MG/ML 10ML VIAL IV ONE (10:54)
[2023-01-04] MEDS ORDERED: ROCURONIUM 10MG/ML 10ML VIAL IV ONE (11:01)
[2023-01-04] MEDS ORDERED: ETOMIDATE (2MG/ML) 20ML VIAL IV ONE ×2 (11:08→11:30)
[2023-01-04] MEDS: MIDAZOLAM DRIP 50 mg/50mL 50 ML IV SCH ×2 (11:30→17:17)
[2023-01-04] MEDS: fentaNYL Drip 2500mCg/250mlNS 250 ML IV SCH (11:30)
[2023-01-04] MEDS: PROPOFOL 100 ML IV SCH (11:30)
[2023-01-04 13:01] LABS: Base Excess -7.1 mmol/L (-2.0-2.0)
[2023-01-04] MEDS: AMINO ACID INFUSION IN D10W 1,000 ML IV NR (19:59)
[2023-01-04] MEDS: VANCOMYCIN 500 MG in D5W 5% 100 ML IV SCH (22:01)
[2023-01-05] VITALS (107 sets, daily range): BP systolic 89–142; BP diastolic 19–68; PULSE 85–127; RESP 15–55; TEMP 97.5–98.6; O2SAT 99–100
[2023-01-05] MEDS: ALBUTEROL SULF 2.5 MG/0.5ML(0.5%) NEB SOLN NEB SCH ×6 (02:17→21:58)
[2023-01-05] MEDS: IPRATROPIUM BROM 0.5 MG/2.5ML INH SOL NEB SCH ×6 (02:17→21:58)
[2023-01-05] MEDS: AMIODARONE 450mg/250ml AE 250 ML IV SCH ×2 (03:03→16:46)
[2023-01-05 05:36] LABS: Basophils # (auto) 0.1 10 ^3/uL (0-0.2); Basophils % (auto) 0.5 % (0.0-2.0); Eosinophils # (auto) 0.3 10 ^3/uL (0-0.8); Hematocrit 28.1 % (41.0-53.0); Lymphocytes # (auto) 0.5 10 ^3/uL (0.4-5.4); Lymphocytes % (auto) 5.5 % (10.0-50.0); Mean Corpuscular Hgb Conc. 31.9 g/dL (32.0-36.0); Monocytes # (auto) 0.3 10 ^3/uL (0-1.3); Monocytes % (auto) 2.9 % (0.0-12.0); Neutrophils # (auto) 8.8 10 ^3/uL (1.6-8.6); Neutrophils % (auto) 88.1 % (37.0-80.0); Nucleated Red Blood Cells % 0.3 %; Red Blood Cells 2.99 10^6/uL (4.5-5.90); White Blood Cell 9.9 10^3/uL (4.4-10.8)
[2023-01-05 05:45] LABS: Red Cell Distribution Width 20.9 % (11.8-14.3)
[2023-01-05 05:56] LABS: BUN/Creatinine Ratio 31.3 (10.0-20.0); Calcium 7.8 mg/dL (8.5-10.1); Potassium 3.7 mmol/L (3.5-5.1)
[2023-01-05] MEDS: BISMUTH SUBSALICYLATE 262 MG CHEW PO SCH ×4 (06:00→21:29)
[2023-01-05] MEDS: InsuLIN REG 1unit/0.01ml Soln (100units/ml) SC SCH ×3 (06:00→17:13)
[2023-01-05] MEDS: ACCU-CHEK COMFORT CURVE STRIP VI SCH ×3 (06:19→17:13)
[2023-01-05] MEDS: SUCRALFATE 1 GM/10 ML ORAL SUSP PO SCH ×4 (06:23→21:26)
[2023-01-05] MEDS: FUROSEMIDE 40 MG/4 ML VIAL IV SCH ×2 (06:23→17:13)
[2023-01-05] MEDS: NOREPINEPHRINE 8 MG/250ML KIT 250 ML IV SCH (06:32)
[2023-01-05] MEDS ORDERED: SODIUM CHLORIDE 0.9% 1,000 ML IV SCH (07:00)
[2023-01-05] MEDS: D5W 5% IV SCH ×2 (08:53→17:17)
[2023-01-05] MEDS: ACYCLOVIR SOD IV SCH ×2 (08:53→17:17)
[2023-01-05] MEDS: PANTOPRAZOLE 40 MG/10 ML VIAL INJ IV SCH ×2 (09:44→21:26)
[2023-01-05] MEDS: CEFEPIME 2GM/50ML NS 50 ML IV SCH ×2 (09:44→21:28)
[2023-01-05] MEDS: GABAPENTIN 300 MG CAP PO SCH ×2 (09:44→21:27)
[2023-01-05] MEDS: MULTIPLE VITAMIN TAB PO SCH (09:44)
[2023-01-05] MEDS: FLORASTOR (S. BOULARDII) 250 MG CAP PO SCH (09:44)
[2023-01-05] MEDS: SODIUM CHLOR 0.9% PF (SALINE LOCK) 10ML VIAL/SYR IV SCH ×4 (09:45→21:29)
[2023-01-05] MEDS: MICAFUNGIN SODIUM 100 MG in SODIUM CHL 0.9% 100 ML IV SCH (09:45)
[2023-01-05] MEDS: MEGESTROL ACET 400MG/10ML ORAL SUSP PO SCH ×2 (10:00→21:27)
[2023-01-05] MEDS: DAKINS QUARTER STR 0.125% (NaHypochlorite) 473 ML TOPICAL SOL TOP SCH ×2 (10:07→21:30)
[2023-01-05] MEDS: VENLAFAXINE HCL 37.5MG TABLET PO SCH ×2 (10:09→21:27)
[2023-01-05] MEDS: PROPOFOL 100 ML IV SCH (11:30)
[2023-01-05] MEDS: ALBUMIN 25% 100 ML IV SCH (12:34)
[2023-01-05] MEDS: fentaNYL Drip 2500mCg/250mlNS 250 ML IV SCH (16:04)
[2023-01-05] MEDS: ENOXAPARIN SOD 60 MG/0.6 ML SYRINGE SC SCH ×2 (16:48→21:26)
[2023-01-05] MEDS ORDERED: Glucerna 1.2 Cal 1Liter BOTTLE GT SCH (18:00)
[2023-01-05 19:00] LABS: Body Fluid Polymorphonuclear 55 % (0-25); Body Fluid Red Blood Cells 8925 CUMM (0-2000); Body Fluid White Blood Cells 375 CUMM (0-200)
[2023-01-05] MEDS: AMINO ACID INFUSION IN D10W 1,000 ML IV NR (21:07)
[2023-01-05] MEDS: VANCOMYCIN 500 MG in D5W 5% 100 ML IV SCH (21:33)
[2023-01-05] MEDS ORDERED: ALBUMIN 25% 100 ML IV SCH (22:00)
[2023-01-06] VITALS (108 sets, daily range): BP systolic 94–137; BP diastolic 15–68; PULSE 81–103; RESP 18–26; TEMP 96.8–99.3; O2SAT 100
[2023-01-06] MEDS: ACCU-CHEK COMFORT CURVE STRIP VI SCH ×4 (00:24→18:33)
[2023-01-06] MEDS: ALBUMIN 25% 100 ML IV SCH ×2 (00:24→12:11)
[2023-01-06] MEDS: D5W 5% IV SCH ×4 (00:25→18:50)
[2023-01-06] MEDS: ACYCLOVIR SOD IV SCH ×4 (00:25→18:50)
[2023-01-06] MEDS: ALBUTEROL SULF 2.5 MG/0.5ML(0.5%) NEB SOLN NEB SCH ×6 (01:58→22:34)
[2023-01-06] MEDS: IPRATROPIUM BROM 0.5 MG/2.5ML INH SOL NEB SCH ×6 (01:58→22:34)
[2023-01-06] MEDS: NOREPINEPHRINE 8 MG/250ML KIT 250 ML IV SCH ×2 (02:37→22:16)
[2023-01-06 04:32] LABS: Potassium 3.1 mmol/L (3.5-5.1)
[2023-01-06 04:35] LABS: Albumin 2.3 g/dL (3.4-5.0); BUN/Creatinine Ratio 29.8 (10.0-20.0); Calcium 7.4 mg/dL (8.5-10.1); Magnesium 1.8 mg/dL (1.6-2.6)
[2023-01-06 04:40] LABS: Total Protein 5.3 g/dL (6.4-8.2)
[2023-01-06] MEDS: FUROSEMIDE 40 MG/4 ML VIAL IV SCH ×2 (05:42→18:00)
[2023-01-06] MEDS: BISMUTH SUBSALICYLATE 262 MG CHEW PO SCH ×3 (05:42→20:49)
[2023-01-06] MEDS: SUCRALFATE 1 GM/10 ML ORAL SUSP PO SCH ×4 (05:42→22:16)
[2023-01-06] MEDS: InsuLIN REG 1unit/0.01ml Soln (100units/ml) SC SCH ×4 (05:44→18:00)
[2023-01-06] MEDS ORDERED: MAGNESIUM SULFATE 1GM/100ML 100 ML IV ONE (08:15)
[2023-01-06 08:37] LABS: Basophils # (auto) 0 10 ^3/uL (0-0.2); Eosinophils # (auto) 0.2 10 ^3/uL (0-0.8); Hemoglobin 7.4 g/dL (13.5-17.5); Lymphocytes # (auto) 0.2 10 ^3/uL (0.4-5.4); Lymphocytes % (auto) 4.2 % (10.0-50.0); Monocytes # (auto) 0.2 10 ^3/uL (0-1.3); White Blood Cell 5.8 10^3/uL (4.4-10.8)
[2023-01-06 08:38] LABS: Basophils % (auto) 0.5 % (0.0-2.0); Eosinophils % (auto) 3.6 % (0.0-7.0); Hematocrit 23.4 % (41.0-53.0); Mean Corpuscular Hemoglobin 29.3 pg (28.0-32.0); Mean Corpuscular Hgb Conc. 31.6 g/dL (32.0-36.0); Mean Corpuscular Volume 92.9 fL (80.0-100.0); Monocytes % (auto) 3.2 % (0.0-12.0); Neutrophils # (auto) 5.1 10 ^3/uL (1.6-8.6); Neutrophils % (auto) 88.5 % (37.0-80.0); Nucleated Red Blood Cells % 0.2 %; Red Blood Cells 2.52 10^6/uL (4.5-5.90); Red Cell Distribution Width 20.8 % (11.8-14.3)
[2023-01-06] MEDS: AMIODARONE 450mg/250ml AE 250 ML IV SCH (08:46)
[2023-01-06] MEDS: POTASSIUM CHL 20MEQ/100ML 100 ML IV SCH ×3 (08:50→13:05)
[2023-01-06 09:36] LABS: Base Excess -11.4 mmol/L (-2.0-2.0)
[2023-01-06] MEDS: PANTOPRAZOLE 40 MG/10 ML VIAL INJ IV SCH ×2 (10:24→22:15)
[2023-01-06] MEDS: GABAPENTIN 300 MG CAP PO SCH ×2 (10:24→22:16)
[2023-01-06] MEDS: FLORASTOR (S. BOULARDII) 250 MG CAP PO SCH (10:24)
[2023-01-06] MEDS: MULTIPLE VITAMIN TAB PO SCH (10:24)
[2023-01-06] MEDS: ENOXAPARIN SOD 60 MG/0.6 ML SYRINGE SC SCH ×2 (10:25→22:15)
[2023-01-06] MEDS: SODIUM CHLOR 0.9% PF (SALINE LOCK) 10ML VIAL/SYR IV SCH ×4 (10:26→22:16)
[2023-01-06] MEDS: MICAFUNGIN SODIUM 100 MG in SODIUM CHL 0.9% 100 ML IV SCH (10:27)
[2023-01-06] MEDS: MEGESTROL ACET 400MG/10ML ORAL SUSP PO SCH ×2 (10:27→20:48)
[2023-01-06] MEDS: VENLAFAXINE HCL 37.5MG TABLET PO SCH ×2 (10:27→20:48)
[2023-01-06] MEDS: DAKINS QUARTER STR 0.125% (NaHypochlorite) 473 ML TOPICAL SOL TOP SCH ×2 (10:28→22:17)
[2023-01-06] MEDS: CEFEPIME 2GM/50ML NS 50 ML IV SCH ×2 (10:29→22:15)
[2023-01-06 11:16] LABS: Urine Amorphous Crystal FEW /hpf (None Seen); Urine Bacteria FEW /hpf (None Seen); Urine Blood 2+ /uL (Negative); Urine Clarity HAZY (Clear); Urine Mucus FEW (None Seen); Urine Protein, UAD TRACE (Negative); Urine Specific Gravity 1.006 (1.001-1.035); Urine Urobilinogen Normal (Negative); Urine WBC 7 /hpf (0 - 3)
[2023-01-06 11:18] LABS: Urine Color STRAW (Yellow)
[2023-01-06] MEDS: fentaNYL Drip 2500mCg/250mlNS 250 ML IV SCH (11:30)
[2023-01-06] MEDS: PROPOFOL 100 ML IV SCH (11:30)
[2023-01-06] MEDS: MIDAZOLAM DRIP 50 mg/50mL 50 ML IV SCH (11:30)
[2023-01-06] MEDS ORDERED: SODIUM PHOSPHATES 20 MEQ in SODIUM CHL 0.9% 100 ML IV ONE (12:15)
[2023-01-06 12:25] LABS: Protein, Urine 43.2 mg/dL (0.0-11.9); Sodium Urine 58 mmol/L (40-220)
[2023-01-06 13:17] LABS: Creatinine, Urine < 30 mg/dL (30.0-125.0)
[2023-01-06] MEDS: AMINO ACID INFUSION IN D10W 1,000 ML IV NR (20:47)
[2023-01-06] MEDS: METOCLOPRAMIDE HCL 5MG/ml INJ 2ml VIAL IV SCH (22:16)
[2023-01-07] VITALS (103 sets, daily range): BP systolic 80–146; BP diastolic 23–59; PULSE 71–108; RESP 15–31; TEMP 88.9–99.3; O2SAT 100
[2023-01-07] MEDS: ACCU-CHEK COMFORT CURVE STRIP VI SCH ×5 (00:14→23:49)
[2023-01-07] MEDS: ALBUMIN 25% 100 ML IV SCH (00:24)
[2023-01-07] MEDS: AMIODARONE 450mg/250ml AE 250 ML IV SCH (01:19)
[2023-01-07] MEDS: D5W 5% IV SCH ×2 (02:00→08:38)
[2023-01-07] MEDS: ACYCLOVIR SOD IV SCH ×2 (02:00→08:38)
[2023-01-07] MEDS: ALBUTEROL SULF 2.5 MG/0.5ML(0.5%) NEB SOLN NEB SCH ×6 (02:25→22:09)
[2023-01-07] MEDS: IPRATROPIUM BROM 0.5 MG/2.5ML INH SOL NEB SCH ×6 (02:25→22:09)
[2023-01-07 03:55] LABS: Basophils # (auto) 0.1 10 ^3/uL (0-0.2); Eosinophils # (auto) 0.2 10 ^3/uL (0-0.8); Hematocrit 24.7 % (41.0-53.0); Lymphocytes # (auto) 0.4 10 ^3/uL (0.4-5.4); Mean Corpuscular Hemoglobin 29.9 pg (28.0-32.0); Mean Corpuscular Hgb Conc. 32.3 g/dL (32.0-36.0); Monocytes # (auto) 0.3 10 ^3/uL (0-1.3); Monocytes % (auto) 3.8 % (0.0-12.0); Neutrophils # (auto) 7.2 10 ^3/uL (1.6-8.6); Nucleated Red Blood Cells % 0.1 %; White Blood Cell 8.2 10^3/uL (4.4-10.8)
[2023-01-07 03:59] LABS: Basophils % (auto) 0.7 % (0.0-2.0); Eosinophils % (auto) 2.7 % (0.0-7.0); Lymphocytes % (auto) 4.4 % (10.0-50.0); Mean Corpuscular Volume 92.5 fL (80.0-100.0); Neutrophils % (auto) 88.4 % (37.0-80.0); Red Blood Cells 2.67 10^6/uL (4.5-5.90)
[2023-01-07 04:06] LABS: Red Cell Distribution Width 20.6 % (11.8-14.3)
[2023-01-07 04:08] LABS: Albumin 2.8 g/dL (3.4-5.0); BUN/Creatinine Ratio 25.3 (10.0-20.0); Calcium 7.5 mg/dL (8.5-10.1); Magnesium 1.9 mg/dL (1.6-2.6); Potassium 4.1 mmol/L (3.5-5.1)
[2023-01-07 04:10] LABS: Bilirubin, Total 0.9 mg/dL (0.2-1.0)
[2023-01-07] MEDS: METOCLOPRAMIDE HCL 5MG/ml INJ 2ml VIAL IV SCH ×3 (05:52→21:49)
[2023-01-07] MEDS: BISMUTH SUBSALICYLATE 262 MG CHEW PO SCH ×4 (05:53→21:51)
[2023-01-07] MEDS: FUROSEMIDE 40 MG/4 ML VIAL IV SCH (06:00)
[2023-01-07] MEDS: SUCRALFATE 1 GM/10 ML ORAL SUSP PO SCH ×4 (06:43→21:50)
[2023-01-07] MEDS: InsuLIN REG 1unit/0.01ml Soln (100units/ml) SC SCH ×5 (06:44→23:49)
[2023-01-07 07:19] LABS: Base Excess -13.3 mmol/L (-2.0-2.0)
[2023-01-07] MEDS: AMIODARONE HCL 200 MG TAB PO SCH ×2 (08:38→21:51)
[2023-01-07] MEDS ORDERED: SODIUM BICARBONATE 8.4 % INJ 50ML VIAL IV ONE (10:15)
[2023-01-07] MEDS: VENLAFAXINE HCL 37.5MG TABLET PO SCH (10:58)
[2023-01-07] MEDS: MICAFUNGIN SODIUM 100 MG in SODIUM CHL 0.9% 100 ML IV SCH (10:58)
[2023-01-07] MEDS: FLORASTOR (S. BOULARDII) 250 MG CAP PO SCH (10:59)
[2023-01-07] MEDS: PANTOPRAZOLE 40 MG/10 ML VIAL INJ IV SCH ×2 (10:59→21:49)
[2023-01-07] MEDS: MULTIPLE VITAMIN TAB PO SCH (10:59)
[2023-01-07] MEDS: ENOXAPARIN SOD 60 MG/0.6 ML SYRINGE SC SCH (10:59)
[2023-01-07] MEDS: GABAPENTIN 300 MG CAP PO SCH (10:59)
[2023-01-07] MEDS: MEGESTROL ACET 400MG/10ML ORAL SUSP PO SCH ×2 (11:00→21:50)
[2023-01-07] MEDS: SODIUM CHLOR 0.9% PF (SALINE LOCK) 10ML VIAL/SYR IV SCH ×4 (11:11→21:49)
[2023-01-07] MEDS: DAKINS QUARTER STR 0.125% (NaHypochlorite) 473 ML TOPICAL SOL TOP SCH ×2 (11:11→21:51)
[2023-01-07] MEDS: MIDAZOLAM DRIP 50 mg/50mL 50 ML IV SCH (11:30)
[2023-01-07] MEDS: fentaNYL Drip 2500mCg/250mlNS 250 ML IV SCH (11:30)
[2023-01-07] MEDS: PROPOFOL 100 ML IV SCH (11:30)
[2023-01-07] MEDS ORDERED: TPN PER PHARMACY 0 ML IV SCH (13:15)
[2023-01-07] MEDS: NOREPINEPHRINE 8 MG/250ML KIT 250 ML IV SCH (14:36)
[2023-01-07] MEDS: BUMETANIDE INJECTION 12.5 MG in GIVE UN-DILUTED 0 ML IV SCH (17:43)
[2023-01-07] MEDS: AMINO ACID INFUSION IN D10W 1,000 ML IV NR (21:11)
[2023-01-08] VITALS (105 sets, daily range): BP systolic 95–145; BP diastolic 22–55; PULSE 85–124; RESP 19–29; TEMP 96.8–99; O2SAT 100
[2023-01-08] MEDS: NOREPINEPHRINE 8 MG/250ML KIT 250 ML IV SCH ×2 (01:39→16:34)
[2023-01-08] MEDS: IPRATROPIUM BROM 0.5 MG/2.5ML INH SOL NEB SCH ×6 (02:02→22:25)
[2023-01-08] MEDS: ALBUTEROL SULF 2.5 MG/0.5ML(0.5%) NEB SOLN NEB SCH ×6 (02:02→22:25)
[2023-01-08 04:23] LABS: Basophils # (auto) 0 10 ^3/uL (0-0.2); Basophils % (auto) 0.3 % (0.0-2.0); Eosinophils # (auto) 0.1 10 ^3/uL (0-0.8); Eosinophils % (auto) 0.8 % (0.0-7.0); Hemoglobin 8.5 g/dL (13.5-17.5); Lymphocytes # (auto) 0.3 10 ^3/uL (0.4-5.4); Mean Corpuscular Hgb Conc. 32.6 g/dL (32.0-36.0); Monocytes # (auto) 0.5 10 ^3/uL (0-1.3); Monocytes % (auto) 4.6 % (0.0-12.0); Neutrophils # (auto) 9.3 10 ^3/uL (1.6-8.6); Neutrophils % (auto) 91.3 % (37.0-80.0); Nucleated Red Blood Cells % 0.3 %; Red Blood Cells 2.83 10^6/uL (4.5-5.90); White Blood Cell 10.2 10^3/uL (4.4-10.8)
[2023-01-08 04:30] LABS: Red Cell Distribution Width 20.6 % (11.8-14.3)
[2023-01-08 04:44] LABS: Albumin 2.3 g/dL (3.4-5.0); Calcium 7.6 mg/dL (8.5-10.1); Potassium 3.8 mmol/L (3.5-5.1)
[2023-01-08 04:48] LABS: BUN/Creatinine Ratio 25.2 (10.0-20.0); Bilirubin, Total 0.6 mg/dL (0.2-1.0); Magnesium 1.9 mg/dL (1.6-2.6); Phosphorus 3.3 mg/dL (2.5-4.90); Total Protein 5.5 g/dL (6.4-8.2)
[2023-01-08] MEDS: InsuLIN REG 1unit/0.01ml Soln (100units/ml) SC SCH ×3 (05:43→17:03)
[2023-01-08] MEDS: ACCU-CHEK COMFORT CURVE STRIP VI SCH ×3 (05:43→17:02)
[2023-01-08] MEDS: METOCLOPRAMIDE HCL 5MG/ml INJ 2ml VIAL IV SCH ×3 (05:44→22:06)
[2023-01-08] MEDS: BISMUTH SUBSALICYLATE 262 MG CHEW PO SCH ×2 (05:45→14:41)
[2023-01-08] MEDS: SUCRALFATE 1 GM/10 ML ORAL SUSP PO SCH ×4 (06:47→22:05)
[2023-01-08 08:56] LABS: Base Excess -16.2 mmol/L (-2.0-2.0)
[2023-01-08] MEDS: MULTIPLE VITAMIN TAB PO SCH (09:26)
[2023-01-08] MEDS: AMIODARONE HCL 200 MG TAB PO SCH ×2 (09:27→22:06)
[2023-01-08] MEDS: MICAFUNGIN SODIUM 100 MG in SODIUM CHL 0.9% 100 ML IV SCH (09:27)
[2023-01-08] MEDS: FLORASTOR (S. BOULARDII) 250 MG CAP PO SCH (09:27)
[2023-01-08] MEDS: SODIUM CHLOR 0.9% PF (SALINE LOCK) 10ML VIAL/SYR IV SCH ×3 (09:28→22:06)
[2023-01-08] MEDS: PANTOPRAZOLE 40 MG/10 ML VIAL INJ IV SCH ×2 (09:28→22:06)
[2023-01-08] MEDS: ENOXAPARIN SOD 60 MG/0.6 ML SYRINGE SC SCH (09:28)
[2023-01-08] MEDS: BUMETANIDE INJECTION 12.5 MG in GIVE UN-DILUTED 0 ML IV SCH (09:31)
[2023-01-08] MEDS: DAKINS QUARTER STR 0.125% (NaHypochlorite) 473 ML TOPICAL SOL TOP SCH ×2 (09:33→22:06)
[2023-01-08] MEDS ORDERED: D5W 5% IV SCH (10:00)
[2023-01-08] MEDS: MEGESTROL ACET 400MG/10ML ORAL SUSP PO SCH (10:00)
[2023-01-08] MEDS ORDERED: ACYCLOVIR SOD IV SCH (10:00)
[2023-01-08] MEDS ORDERED: SODIUM CHL 3% 500 ML IV ONE (10:15)
[2023-01-08] MEDS: CEFEPIME 2GM/50ML NS 50 ML IV SCH (11:17)
[2023-01-08] MEDS: MIDAZOLAM DRIP 50 mg/50mL 50 ML IV SCH (11:30)
[2023-01-08] MEDS: PROPOFOL 100 ML IV SCH (11:30)
[2023-01-08] MEDS: fentaNYL Drip 2500mCg/250mlNS 250 ML IV SCH (11:30)
[2023-01-08] MEDS ORDERED: SODIUM BICARBONATE 8.4 % INJ 50ML VIAL IV ONE (13:15)
[2023-01-08 15:42] LABS: BUN/Creatinine Ratio 25.8 (10.0-20.0); Calcium 7.4 mg/dL (8.5-10.1); Potassium 3.4 mmol/L (3.5-5.1)
[2023-01-08] MEDS ORDERED: TPN PER PHARMACY IV NR ×10 (20:00)
[2023-01-09] VITALS (104 sets, daily range): BP systolic 82–133; BP diastolic 20–86; PULSE 93–128; RESP 14–32; TEMP 97.5–99; O2SAT 100
[2023-01-09] MEDS: ACCU-CHEK COMFORT CURVE STRIP VI SCH ×4 (00:08→17:23)
[2023-01-09] MEDS: InsuLIN REG 1unit/0.01ml Soln (100units/ml) SC SCH ×4 (00:09→17:24)
[2023-01-09] MEDS: IPRATROPIUM BROM 0.5 MG/2.5ML INH SOL NEB SCH ×6 (02:00→22:01)
[2023-01-09] MEDS: ALBUTEROL SULF 2.5 MG/0.5ML(0.5%) NEB SOLN NEB SCH ×6 (02:00→22:01)
[2023-01-09 04:43] LABS: Albumin 1.8 g/dL (3.4-5.0); Calcium 7.5 mg/dL (8.5-10.1); Potassium 3.4 mmol/L (3.5-5.1)
[2023-01-09 04:48] LABS: BUN/Creatinine Ratio 25.9 (10.0-20.0); Bilirubin, Total 0.4 mg/dL (0.2-1.0); Phosphorus 2.2 mg/dL (2.5-4.90)
[2023-01-09] MEDS: METOCLOPRAMIDE HCL 5MG/ml INJ 2ml VIAL IV SCH ×3 (05:50→21:39)
[2023-01-09] MEDS: SUCRALFATE 1 GM/10 ML ORAL SUSP PO SCH ×4 (06:39→21:38)
[2023-01-09] MEDS: SODIUM CHLOR 0.9% PF (SALINE LOCK) 10ML VIAL/SYR IV SCH ×2 (07:11→21:39)
[2023-01-09] MEDS: PROPOFOL 100 ML IV SCH (07:12)
[2023-01-09] MEDS: fentaNYL Drip 2500mCg/250mlNS 250 ML IV SCH (07:12)
[2023-01-09] MEDS: MIDAZOLAM DRIP 50 mg/50mL 50 ML IV SCH (07:12)
[2023-01-09] MEDS: ENOXAPARIN SOD 60 MG/0.6 ML SYRINGE SC SCH (08:36)
[2023-01-09] MEDS: CEFEPIME 2GM/50ML NS 50 ML IV SCH (08:36)
[2023-01-09] MEDS: MICAFUNGIN SODIUM 100 MG in SODIUM CHL 0.9% 100 ML IV SCH (08:36)
[2023-01-09] MEDS: PANTOPRAZOLE 40 MG/10 ML VIAL INJ IV SCH ×2 (08:36→21:39)
[2023-01-09] MEDS: DAKINS QUARTER STR 0.125% (NaHypochlorite) 473 ML TOPICAL SOL TOP SCH ×2 (08:37→21:39)
[2023-01-09] MEDS: MULTIPLE VITAMIN TAB PO SCH (08:37)
[2023-01-09] MEDS: AMIODARONE HCL 200 MG TAB PO SCH ×2 (08:37→21:38)
[2023-01-09] MEDS: FLORASTOR (S. BOULARDII) 250 MG CAP PO SCH (08:37)
[2023-01-09] MEDS: BUMETANIDE INJECTION 12.5 MG in GIVE UN-DILUTED 0 ML IV SCH (10:18)
[2023-01-09] MEDS ORDERED: TPN PER PHARMACY IV NR ×10 (20:00)
[2023-01-10] VITALS (68 sets, daily range): BP systolic 48–117; BP diastolic 14–50; PULSE 60–117; RESP 9–32; TEMP 97.5–98.8; O2SAT 100
[2023-01-10] MEDS: ACCU-CHEK COMFORT CURVE STRIP VI SCH ×4 (00:24→14:53)
[2023-01-10] MEDS: InsuLIN REG 1unit/0.01ml Soln (100units/ml) SC SCH ×4 (00:40→14:53)
[2023-01-10] MEDS: IPRATROPIUM BROM 0.5 MG/2.5ML INH SOL NEB SCH ×3 (02:28→11:34)
[2023-01-10] MEDS: ALBUTEROL SULF 2.5 MG/0.5ML(0.5%) NEB SOLN NEB SCH ×3 (02:28→11:34)
[2023-01-10 04:02] LABS: Albumin 1.6 g/dL (3.4-5.0); Calcium 7.7 mg/dL (8.5-10.1); Magnesium 2.3 mg/dL (1.6-2.6)
[2023-01-10 04:07] LABS: BUN/Creatinine Ratio 26.2 (10.0-20.0); Bilirubin, Total 0.4 mg/dL (0.2-1.0); Phosphorus 2.1 mg/dL (2.5-4.90); Total Protein 4.9 g/dL (6.4-8.2)
[2023-01-10] MEDS: METOCLOPRAMIDE HCL 5MG/ml INJ 2ml VIAL IV SCH ×2 (05:36→14:00)
[2023-01-10] MEDS: NOREPINEPHRINE 8 MG/250ML KIT 250 ML IV SCH ×2 (05:37→09:23)
[2023-01-10] MEDS: SUCRALFATE 1 GM/10 ML ORAL SUSP PO SCH ×3 (06:30→14:53)
[2023-01-10] MEDS: fentaNYL Drip 2500mCg/250mlNS 250 ML IV SCH (07:23)
[2023-01-10] MEDS: MIDAZOLAM DRIP 50 mg/50mL 50 ML IV SCH (07:23)
[2023-01-10] MEDS: PROPOFOL 100 ML IV SCH (07:23)
[2023-01-10] MEDS: SODIUM CHLOR 0.9% PF (SALINE LOCK) 10ML VIAL/SYR IV SCH (07:23)
[2023-01-10 07:24] LABS: Basophils # (auto) 0.1 10 ^3/uL (0-0.2); Basophils % (auto) 0.7 % (0.0-2.0); Eosinophils # (auto) 0 10 ^3/uL (0-0.8); Eosinophils % (auto) 0.4 % (0.0-7.0); Hemoglobin 8.4 g/dL (13.5-17.5); Mean Corpuscular Hemoglobin 29.5 pg (28.0-32.0); Red Cell Distribution Width 20.7 % (11.8-14.3); White Blood Cell 11.3 10^3/uL (4.4-10.8)
[2023-01-10 07:25] LABS: Hematocrit 25.9 % (41.0-53.0); Lymphocytes # (auto) 0.2 10 ^3/uL (0.4-5.4); Lymphocytes % (auto) 2.2 % (10.0-50.0); Mean Corpuscular Hgb Conc. 32.3 g/dL (32.0-36.0); Mean Corpuscular Volume 91.5 fL (80.0-100.0); Monocytes # (auto) 0.7 10 ^3/uL (0-1.3); Monocytes % (auto) 5.8 % (0.0-12.0); Neutrophils # (auto) 10.3 10 ^3/uL (1.6-8.6); Neutrophils % (auto) 90.9 % (37.0-80.0); Nucleated Red Blood Cells % 0.2 %; Red Blood Cells 2.83 10^6/uL (4.5-5.90)
[2023-01-10 07:30] LABS: Base Excess -10.9 mmol/L (-2.0-2.0)
[2023-01-10] MEDS: ENOXAPARIN SOD 60 MG/0.6 ML SYRINGE SC SCH (07:51)
[2023-01-10] MEDS: CEFEPIME 2GM/50ML NS 50 ML IV SCH (07:51)
[2023-01-10] MEDS: FLORASTOR (S. BOULARDII) 250 MG CAP PO SCH (07:51)
[2023-01-10] MEDS: PANTOPRAZOLE 40 MG/10 ML VIAL INJ IV SCH (07:51)
[2023-01-10] MEDS: AMIODARONE HCL 200 MG TAB PO SCH (07:52)
[2023-01-10] MEDS: DAKINS QUARTER STR 0.125% (NaHypochlorite) 473 ML TOPICAL SOL TOP SCH (07:52)
[2023-01-10] MEDS: MULTIPLE VITAMIN TAB PO SCH (07:52)
[2023-01-10] MEDS ORDERED: SODIUM PHOSPHATES 40 MEQ in D5W 5% 250 ML IV ONE (10:00)
[2023-01-10] MEDS: LORazepam 2MG/ML-1ML VIAL IV PRN ×2 (13:32→15:46)
[2023-01-10] MEDS: MORPHINE SULFATE INJ 2 MG/ml SYRG IV PRN ×2 (13:33→15:46)
[2023-01-10] MEDS: BUMETANIDE INJECTION 12.5 MG in GIVE UN-DILUTED 0 ML IV SCH (14:52)
[2023-01-10] MEDS ORDERED: TPN PER PHARMACY IV NR ×11 (20:00)
== END 2023-01-10 16:09 | DRG 870 ==
LOC: ER 13:42 → EDBD 13:42 → TELE 16:28 → TELE-WESTW 12-15 18:33 → DOU IN ICU 12-22 22:54 → TELE-WESTW 12-24 16:21 → ICU WEST 12-31 11:08
PROVIDERS: ADMIT Hospitalist; ATTEND Hospitalist
PROC: 05H933Z Insertion of Infusion Device into Right Brachial Vein, Percutaneous Approach (ICD-10-PCS; 2022-12-14)
PROC: B54MZZA Ultrasonography of Right Upper Extremity Veins, Guidance (ICD-10-PCS; 2022-12-14)
PROC: 02HV33Z Insertion of Infusion Device into Superior Vena Cava, Percutaneous Approach (ICD-10-PCS; 2022-12-26)
PROC: B548ZZA Ultrasonography of Superior Vena Cava, Guidance (ICD-10-PCS; 2022-12-26)
PROC: 0W9B3ZZ Drainage of Left Pleural Cavity, Percutaneous Approach (ICD-10-PCS; principal; 2022-12-31)
PROC: 5A09357 Assistance with Respiratory Ventilation, Less than 24 Consecutive Hours, Continuous Positive Airway Pressure (ICD-10-PCS; 2022-12-31)
PROC: 5A09357 Assistance with Respiratory Ventilation, Less than 24 Consecutive Hours, Continuous Positive Airway Pressure (ICD-10-PCS; 2023-01-01)
PROC: 5A0935A Assistance with Respiratory Ventilation, Less than 24 Consecutive Hours, High Flow/Velocity Cannula (ICD-10-PCS; 2023-01-01)
PROC: 5A09457 Assistance with Respiratory Ventilation, 24-96 Consecutive Hours, Continuous Positive Airway Pressure (ICD-10-PCS; 2023-01-02)
PROC: 0W9B3ZZ Drainage of Left Pleural Cavity, Percutaneous Approach (ICD-10-PCS; 2023-01-03)
PROC: 02HV33Z Insertion of Infusion Device into Superior Vena Cava, Percutaneous Approach (ICD-10-PCS; 2023-01-03)
PROC: B548ZZA Ultrasonography of Superior Vena Cava, Guidance (ICD-10-PCS; 2023-01-03)
PROC: 5A1955Z Respiratory Ventilation, Greater than 96 Consecutive Hours (ICD-10-PCS; 2023-01-04)
PROC: 0BH17EZ Insertion of Endotracheal Airway into Trachea, Via Natural or Artificial Opening (ICD-10-PCS; 2023-01-04)
PROC: 0W9B3ZZ Drainage of Left Pleural Cavity, Percutaneous Approach (ICD-10-PCS; 2023-01-05)
DX: A41.9 Sepsis, unspecified organism (principal); G93.41 Metabolic encephalopathy; J96.01 Acute respiratory failure with hypoxia; N17.0 Acute kidney failure with tubular necrosis; J69.0 Pneumonitis due to inhalation of food and vomit; N30.00 Acute cystitis without hematuria; L03.116 Cellulitis of left lower limb; I48.20 Chronic atrial fibrillation, unspecified; L97.309 Non-pressure chronic ulcer of unspecified ankle with unspecified severity; F02.83 Dementia in other diseases classified elsewhere, unspecified severity, with mood disturbance; I42.9 Cardiomyopathy, unspecified; M86.9 Osteomyelitis, unspecified; I50.42 Chronic combined systolic (congestive) and diastolic (congestive) heart failure; E87.20 Acidosis, unspecified; Z68.1 Body mass index [BMI] 19.9 or less, adult; J90 Pleural effusion, not elsewhere classified; E44.0 Moderate protein-calorie malnutrition; Z66 Do not resuscitate; I73.9 Peripheral vascular disease, unspecified; I11.0 Hypertensive heart disease with heart failure; F32.A Depression, unspecified; G30.9 Alzheimer's disease, unspecified; I27.20 Pulmonary hypertension, unspecified; I34.0 Nonrheumatic mitral (valve) insufficiency; R62.7 Adult failure to thrive; E11.649 Type 2 diabetes mellitus with hypoglycemia without coma; I25.10 Atherosclerotic heart disease of native coronary artery without angina pectoris; I87.8 Other specified disorders of veins; E11.51 Type 2 diabetes mellitus with diabetic peripheral angiopathy without gangrene; K20.90 Esophagitis, unspecified without bleeding; R13.10 Dysphagia, unspecified; D64.9 Anemia, unspecified; F17.200 Nicotine dependence, unspecified, uncomplicated; Z96.641 Presence of right artificial hip joint; Z96.653 Presence of artificial knee joint, bilateral; E11.69 Type 2 diabetes mellitus with other specified complication; T36.8X5A Adverse effect of other systemic antibiotics, initial encounter; Y92.89 Other specified places as the place of occurrence of the external cause; Z51.5 Encounter for palliative care; Z74.01 Bed confinement status; Z79.01 Long term (current) use of anticoagulants; Z82.0 Family history of epilepsy and other diseases of the nervous system; Z86.14 Personal history of Methicillin resistant Staphylococcus aureus infection; Z86.19 Personal history of other infectious and parasitic diseases; B96.81 Helicobacter pylori [H. pylori] as the cause of diseases classified elsewhere; Z68.27 Body mass index [BMI] 27.0-27.9, adult; K21.9 Gastro-esophageal reflux disease without esophagitis
CPT/HCPCS: 32555; 36415; 36569; 36600; 70450; 70551; 71045; 72125; 73590; 73630; 76604; 76942; 78582; 80048; 80053; 80069; 80162; 80202; 81001; 82140; 82565; 82570; 82607; 82746; 82805; 82962; 83605; 83615; 83690; 83735; 83880; 83986; 84100; 84156; 84300; 84439; 84443; 84478; 84484; 85025; 85379; 85610; 85652; 85730; 86703; 87040; 87070; 87081; 87205; 89051; 92610; 93005; 93306; 93925; 94002; 94003; 94640; 94660; 95819; 96365; 96366; 96367; 96368; 97110; 97116; 97163; 97530; C9113; G0378; J0133; J0330; J0692; J0696; J1815; J2248; J2250; J2543; J3480; J7060; J7131; P9047